=== PATIENT | female | born 1995 | race Caucasian/White ===

== ENCOUNTER 2020-06-02 15:25 | Emergency (ER) | payer SELFPAY ==
[2020-06-02 16:11] VITALS: BP 124/83; PULSE 112; RESP 16; TEMP 36.5; O2SAT 100; BMI 36.8
[2020-06-02 17:26] VITALS: RESP 18
[2020-06-02 17:45] LABS: Basophils # 0.1 10^3/uL (0.0-0.1); Basophils % 0.6 %; Eosinophils # 0.5 10^3/uL (0.0-0.8); Eosinophils % 3.3 %; Hematocrit 40.7 % (37.0-47.0); Hemoglobin 13.2 g/dL (11.5-15.3); Lymphocytes % 28.8 %; Mean Corpuscular HGB Conc 32.4 g/dL (30.0-36.0); Mean Corpuscular Hemoglobin 28.2 pg (28.0-34.0); Mean Platelet Volume 8.6 fL (7.4-10.4); Monocytes # 1.1 10^3/uL (0.2-0.9); Monocytes % 7.7 %; Neutrophils # 8.13 10^3/uL (1.8-7.7); Neutrophils % 59.1 %; Nucleated Red Blood Cells % 0 %; Platelet Count 436 10^3/cmm (130-400); Red Blood Count 4.68 10^6/uL (4.1-5.3); Red Cell Distribution Width 12.5 % (12.1-15.1); White Blood Count 13.8 10^3/uL (4.0-10.0)
[2020-06-02 18:03] LABS: INR 0.87 (0.8-1.2)
[2020-06-02 18:05] LABS: HCG, Serum Qual Negative (Negative)
[2020-06-02 18:07] LABS: Anion Gap 15.3 (5-19); Blood Urea Nitrogen 11 mg/dL (6-20); Calcium 9.7 mg/dL (8.5-10.5); Carbon Dioxide 27 mmol/L (22-29); Chloride 103 mmol/L (98-107); Glomerular Filtration Rate 122.8 mL/min (90-130); Glucose 107 mg/dL (65-115); Osmolality Calculated 292 mOsm/kg (285-295); Potassium 4.3 mmol/L (3.5-5.1); Sodium 141 mmol/L (136-145)
--- NOTE | 2020-06-02 18:17 | W.ED.FEMALGU ---
HPI - Female Genitourinary General: Chief complaint: Vaginal Bleeding Stated complaint: abd pain, back pain, vag bleeding Time Seen by Provider: 06/02/20 17:58 History of Present Illness: HPI Narrative: Patient has been on infertility medications over the last year. Stopped her last dose back in March. Has not had a period since November. Now complaining that she has had abdominal pain and some cramping over the last week which she has a history of dysmenorrhea and now she is passed some blood clots last 3 days spoke with is her office states that if she can get in there to come to the ER. MD elicited complaint: vaginal bleeding Pertinent past history: other Onset (ago): week(s) Quality of pain: cramping Consistency: intermittent Vaginal discharge: none Vaginal bleeding: clots Associated symptoms: Deny abdominal pain, headache(s), nausea or vaginal discharge Date of Last Menstrual Period: 12/11/19 Review of Systems Const: Denies: fever(s), chills or body aches Eyes: Denies: change in vision or blurry vision ENMT: Denies: throat pain or nasal congestion Card: Denies: chest pain or dyspnea on exertion Resp: Denies: dyspnea, productive cough or non-productive cough GI: Denies: abdominal pain, nausea or vomiting : Reports: dysmenorrhea and irregular period; Denies: vaginal discharge Musc: Denies: extremity pain Skin/Breast: Denies: rash Neuro: Denies: headache(s) Psych: Denies: anxiety or depression Liam/Lymph: Denies: easy bruising PFSH ED PFSH: Social History (Updated 06/02/20 @ 16:16 by Daryl Kan RN) Smoking and tobacco status: never smoked Alcohol intake: never Substance/Drug Use: never Female Reproductive History: Date of last menstrual period: 12/11/19 Physical Exam Const: COMMON NORMALS: no acute distress Resp: COMMON NORMALS: normal respiratory effort Psych: COMMON NORMALS: mental status grossly normal Course Vital Signs: Vital signs: Vital Signs Temperature 97.7 F 06/02/20 16:11 Pulse Rate 112 H 06/02/20 16:11 Respiratory Rate 16 06/02/20 16:11 Blood Pressure 124/83 06/02/20 16:11 Pulse Oximetry 100 06/02/20 16:11 MDM - Female MDM Narrative: Medical decision making narrative: Discussed at length about endometrium, vaginal bleeding, medications, and need to follow-up Dr. Ibarra went over the labs discussed all labs were normal reassured patient patient will contact Dr. Rodriguez's office for appointment Lab Data: Labs: Lab Results 06/02/20 06/02/20 06/02/20 Range/Units 17:36 17:36 17:36 WBC 13.8 H (4.0-10.0) 10^3/ uL RBC 4.68 (4.1-5.3) 10^6/u L Hgb 13.2 (11.5-15.3) g/dL Hct 40.7 (37.0-47.0) % MCV 87.0 (81-99) fL MCH 28.2 (28.0-34.0) pg MCHC 32.4 (30.0-36.0) g/dL RDW 12.5 (12.1-15.1) % Plt Count 436 H (130-400) 10^3/c mm MPV 8.6 (7.4-10.4) fL Neut % (Auto) 59.1 % Lymph % (Auto) 28.8 % [place] % (Auto) 7.7 % Eos % (Auto) 3.3 % Baso % (Auto) 0.6 % Neut # (Auto) 8.13 H (1.8-7.7) 10^3/u L Lymph # (Auto) 4.0 (0.8-4.8) 10^3/u L [place] # (Auto) 1.1 H (0.2-0.9) 10^3/u L Eos # (Auto) 0.5 (0.0-0.8) 10^3/u L Baso # (Auto) 0.1 (0.0-0.1) 10^3/u L Nucleated RBC % (a uto) 0 % Nucleated RBCs # 0.0 /100WBC PT 12.10 (12.1-14.9) SECO NDS INR 0.87 (0.8-1.2) Sodium 141 (136-145) mmol/L Potassium 4.3 (3.5-5.1) mmol/L Chloride 103 (98-107) mmol/L Carbon Dioxide 27 (22-29) mmol/L Anion Gap 15.3 (5-19) BUN 11 (6-20) mg/dL Creatinine 0.6 (0.5-0.9) mg/dL GFR Calculation 122.8 (90-130) mL/min Glucose 107 (65-115) mg/dL Calculated Osmolal ity 292 (285-295) mOsm/k g Calcium 9.7 (8.5-10.5) mg/dL HCG, Qual (Negative) 06/02/20 Range/Units 17:36 WBC (4.0-10.0) 10^3/ uL RBC (4.1-5.3) 10^6/u L Hgb (11.5-15.3) g/dL Hct (37.0-47.0) % MCV (81-99) fL MCH (28.0-34.0) pg MCHC (30.0-36.0) g/dL RDW (12.1-15.1) % Plt Count (130-400) 10^3/c mm MPV (7.4-10.4) fL Neut % (Auto) % Lymph % (Auto) % [place] % (Auto) % Eos % (Auto) % Baso % (Auto) % Neut # (Auto) (1.8-7.7) 10^3/u L Lymph # (Auto) (0.8-4.8) 10^3/u L [place] # (Auto) (0.2-0.9) 10^3/u L Eos # (Auto) (0.0-0.8) 10^3/u L Baso # (Auto) (0.0-0.1) 10^3/u L Nucleated RBC % (a uto) % Nucleated RBCs # /100WBC PT (12.1-14.9) SECO NDS INR (0.8-1.2) Sodium (136-145) mmol/L Potassium (3.5-5.1) mmol/L Chloride (98-107) mmol/L Carbon Dioxide (22-29) mmol/L Anion Gap (5-19) BUN (6-20) mg/dL Creatinine (0.5-0.9) mg/dL GFR Calculation (90-130) mL/min Glucose (65-115) mg/dL Calculated Osmolal ity (285-295) mOsm/k g Calcium (8.5-10.5) mg/dL HCG, Qual Negative (Negative) Discharge Plan Discharge Patient Disposition: Home Clinical Impression: Dysfunctional uterine bleeding Condition: Stable Prescriptions: No Action tramadol 50 mg tablet 50 mg PO BID PRNRF: 0 sertraline [Zoloft] 50 mg tablet 50 mg PO DAILY 30 Days Qty: 30 RF: 1 alprazolam 0.5 mg tablet 0.5 mg PO DAILY 30 Days Qty: 30 RF: 5 Discharge Orders: Discharge Order (Routine); Ordered 06/02/20 Ordered By: Pedro Gama Referrals: Graciela Pearl MD [Primary Care Provider] - Discharge Diet: Usual diet Discharge Activity: Increase activity as tolerated Patient Instructions: Dysfunctional Uterine Bleeding (ED) Activity Restrictions/Additional Instructions: Follow-up with Dr. bIarra and discuss the bleeding. Labs are normal here test was negative. And discussed proper medication regimen to help control this bleeding Coding Level of Care Code ED Inspector Final Assembly Conveyor Line for Chg Fwd Exam Expanded Problem Focused
== END 2020-06-02 18:28 | disposition home or self-care (01) ==
PROVIDERS: Emergency Provider Nurse Practitioner Family; PCP Family Medicine
DX: N93.8 Other specified abnormal uterine and vaginal bleeding (principal)
CPT/HCPCS: 12345; 36415; 80048; 84703; 85025; 85610; 99281; 99282

== ENCOUNTER → 2020-06-19 15:38 | Outpatient (BNVA) | payer SELFPAY | PROVIDERS: PCP Family Medicine; Visit Provider Obstetrics & Gynecology | DX: R10.2 Pelvic and perineal pain (principal) | CPT/HCPCS: 76830 ==

== ENCOUNTER → 2021-08-09 14:36 | Outpatient (BNVA) | payer BC, SELFPAY | PROVIDERS: PCP Family Medicine; Visit Provider Family Medicine | DX: N93.8 Other specified abnormal uterine and vaginal bleeding (principal) | CPT/HCPCS: 85018 ==

== ENCOUNTER → 2022-04-21 11:51 | Outpatient (BNVA) | payer BC, SELFPAY | PROVIDERS: PCP Family Medicine; Visit Provider Nurse Practitioner | DX: E28.2 Polycystic ovarian syndrome (principal); N93.8 Other specified abnormal uterine and vaginal bleeding | CPT/HCPCS: 84439; 84443; 84481 ==

== ENCOUNTER 2022-06-07 07:28 | Outpatient (CLI) | payer BC, SELFPAY ==
[2022-06-07 11:21] LABS: Progesterone > 60 ng/mL
== END 2022-06-07 07:29 | disposition home or self-care (01) ==
PROVIDERS: PCP Family Medicine; Visit Provider Specialist
DX: Z01.89 Encounter for other specified special examinations (principal)
CPT/HCPCS: 36415; 84144; 84702

== ENCOUNTER 2022-06-09 07:32 | Outpatient (CLI) | payer BC, SELFPAY ==
[2022-06-09 08:43] LABS: Progesterone > 60 ng/mL
== END 2022-06-09 07:33 | disposition home or self-care (01) ==
LOC: LAB 07:34
PROVIDERS: PCP Family Medicine; Visit Provider Specialist
DX: Z01.89 Encounter for other specified special examinations (principal)
CPT/HCPCS: 84144; 84702

== ENCOUNTER 2022-07-11 16:37 | Emergency (ER) | payer BC, SELFPAY ==
[2022-07-11 16:50] VITALS: BP 129/75; PULSE 100; RESP 16; TEMP 36.7; O2SAT 99; BMI 41.0
--- NOTE | 2022-07-11 19:30 | ED_ITS ---
HPI - Nausea/Vomiting/Diarrhea General: Chief complaint: Nausea/Vomiting/Diarrhea Stated complaint: n/v Time Seen by Provider: 07/11/22 19:30 History of Present Illness: 26-year-old female comes in today for treatment of persistent nausea and vomiting. Patient reports inability to hold food and fluids down over the last 2 days. Patient is 10 weeks . Patient denies any other medical issues or concerns. Associated nausea: Yes Associated symtoms: Reports nausea Review of Systems Const: Denies: fever(s) GI: Reports: nausea and vomiting [facility] PFSH: Medical History Depression Dysfunctional uterine bleeding GERD without esophagitis Irritable bowel Migraine with aura, not intractable, without status migrainosus Polycystic ovarian syndrome Irregular cycles since menarche, longest up to 1 year without cycle, with increased acne problems. Diagnosed with PCOS in 2015. Surgical History S/P laparoscopic cholecystectomy (~2018) [facility]. Family History Grandmother Hypertension Maternal Hyperlipidemia Maternal Mother Hyperlipidemia Social History Smoking and tobacco status: never smoked Second hand smoke exposure: No Smoking risk assessment/counseling performed?: No Alcohol intake: unknown Desire information about alcohol rehabilitation?: No Counseling given: No Desire information about substance/drug rehabilitation?: No Counseling given: No Adopted: No Caregiver/support person: No Lives independently: Yes Household members: spouse Housing: House Marital status: Number of children: 0 service: No Current occupational status: employed Pets and animals: Yes Pets & animals: dog(s) History of recent travel: No Current gender identity: Female Female Reproductive History: Date of last menstrual period: 04/14/22 Physical Exam 2 Const: COMMON NORMALS: alert HENMT: COMMON NORMALS: normocephalic HEAD & SCALP: normocephalic Neck/C-Spine: GENERAL: No tender Resp: COMMON NORMALS: normal respiratory effort and clear to auscultation bilaterally AUSCULTATION: clear to auscultation bilaterally Cardio: COMMON NORMALS: regular rate and regular rhythm RATE: regular rate RHYTHM: regular rhythm GI: COMMON NORMALS: non-tender : COMMON NORMALS: Yes no CVA tenderness BLADDER/KIDNEY EXAM: Yes no CVA tenderness Back/Pelvis: COMMON NORMALS: no CVA tenderness Neuro: SENSORIUM/ORIENTATION: Yes alert Skin: COMMON NORMALS: turgor normal GENERAL SKIN EXAM: turgor normal Course Vital Signs: Vital signs: Vital Signs Temperature 98.1 F 07/11/22 16:50 Pulse Rate 100 07/11/22 16:50 Respiratory Rate 16 07/11/22 16:50 Blood Pressure 129/75 07/11/22 16:50 Pulse Oximetry 99 07/11/22 16:50 Oxygen Delivery Me thod 07/11/22 16:50 MDM - Nausea/Vomiting/Diarrhea Medical Decision Making Patient is 10 weeks comes in due to persistent nausea and vomiting. On exam abdomen is soft, no CVA tenderness, bowel sounds are present. Patient denied any abnormal vaginal discharge or drainage. Differential diagnosis includes dehydration, hyperemesis gravidarum, UTI. Urinalysis was unremarkable. CBC noted a mild leukocytosis at 13,000 and platelets at 497. CMP had a sodium of 132, potassium 3.5, anion gap 17.5. Patient was hydrated with 1 L of IV fluids and was able to tolerate p.o. challenge. Patient was given 10 mg of Reglan IV. Recommend patient follow-up with ARCHITECTURE INTERN in the morning for further recommendations and prescriptions for nausea and vomiting. Encourage electrolyte solution and water to maintain hydration. Patient reported understanding and agreed to plan. Lab Data 07/11/22 20:11 07/11/22 20:11 Laboratory Results WBC 13.7 10^3/uL (4.0-10.0) H 07/11/22 20:11 RBC 4.34 10^6/uL (4.1-5.3) 07/11/22 20:11 Hgb 12.4 g/dL (11.5-15.3) 07/11/22 20:11 Hct 37.4 % (37.0-47.0) 07/11/22 20:11 MCV 86.2 fl (81-99) 07/11/22 20:11 MCH 28.6 pg (28.0-34.0) 07/11/22 20:11 MCHC 33.2 g/dL (30.0-36.0) 07/11/22 20:11 RDW 12.9 % (12.1-15.1) 07/11/22 20:11 Plt Count 497 10^3/cmm (130-400) H 07/11/22 20:11 MPV 8.4 fL (7.4-10.4) 07/11/22 20:11 Neut % (Auto) 59.5 % 07/11/22 20:11 Lymph % (Auto) 31.7 % 07/11/22 20:11 [place] % (Auto) 6.8 % 07/11/22 20:11 Eos % (Auto) 1.0 % 07/11/22 20:11 Baso % (Auto) 0.6 % 07/11/22 20:11 Neut # (Auto) 8.13 10^3/uL (1.8-7.7) H 07/11/22 20:11 Lymph # (Auto) 4.3 10^3/uL (0.8-4.8) 07/11/22 20:11 [place] # (Auto) 0.9 10^3/uL (0.2-0.9) 07/11/22 20:11 Eos # (Auto) 0.1 10^3/uL (0.0-0.8) 07/11/22 20:11 Baso # (Auto) 0.1 10^3/uL (0.0-0.1) 07/11/22 20:11 Nucleated RBC % (auto) 0 % 07/11/22 20:11 Nucleated RBCs # 0.0 /100WBC 07/11/22 20:11 Sodium 132 mmol/L (136-145) L 07/11/22 20:11 Potassium 3.5 mmol/L (3.5-5.1) 07/11/22 20:11 Chloride 97 mmol/L (98-107) L 07/11/22 20:11 Carbon Dioxide 21 mmol/L (22-29) L 07/11/22 20:11 Anion Gap 17.5 (5-19) 07/11/22 20:11 BUN 5 mg/dL (6-20) L 07/11/22 20:11 Creatinine 0.5 mg/dL (0.5-0.9) 07/11/22 20:11 GFR Calculation 149.1 mL/min (90-130) H 07/11/22 20:11 Glucose 92 mg/dL (65-115) 07/11/22 20:11 Calculated Osmolality 271 mOsm/kg (285-295) L 07/11/22 20:11 Calcium 9.4 mg/dL (8.5-10.5) 07/11/22 20:11 Total Bilirubin 0.3 mg/dL (0.15-1.2) 07/11/22 20:11 AST 16 U/L (0-32) 07/11/22 20:11 ALT 14 U/L (0-33) 07/11/22 20:11 Alkaline Phosphatase 86 U/L (35-105) 07/11/22 20:11 Total Protein 7.6 g/dL (6.6-8.7) 07/11/22 20:11 Albumin 4.2 g/dL (3.5-5.2) 07/11/22 20:11 Globulin 3.4 g/dL (1.3-4.6) 07/11/22 20:11 Lipase 13 U/L (13-60) 07/11/22 20:11 HCG, Qual Positive (Negative) H 07/11/22 19:30 Urine Color Yellow (Yellow) 07/11/22 19:30 Urine Appearance Clear (CLEAR) 07/11/22 19:30 Urine pH 6 (5-7) 07/11/22 19:30 Ur Specific [place] 1.025 (1.005-1.030) 07/11/22 19:30 Urine Protein 1+ (Negative) H 07/11/22 19:30 Urine Glucose (UA) Norm (Normal) 07/11/22 19:30 Urine Ketones 3+ (Negative) H 07/11/22 19:30 Urine Blood 2+ (Negative) H 07/11/22 19:30 Urine Nitrate Negative (Negative) 07/11/22 19: Urine Bilirubin Neg (Negative) 07/11/22 19: Urine Urobilinogen Norm mg/dL (Negative) 07/11/22 19:30 Ur Leukocyte Esterase Negative (Negative) 07/11/22 19:30 Urine RBC 0-4 /hpf (0-2) H 07/11/22 19:30 Urine WBC 0-4 /hpf (0-5) H 07/11/22 19:30 Ur Squamous Epith Cells 0-4 /hpf (0-5) H 07/11/22 19:30 Amorphous Sediment Not Reportable 07/11/22 19:30 Urine Bacteria 4+ /hpf (NONE) H 07/11/22 19:30 Discharge Plan Discharge Patient Disposition: Home Clinical Impression: Dehydration, Hyperemesis arising during Condition: Stable Prescriptions: No Action norethindrone acetate 5 mg tablet 5 mg PO DAILY cholecalciferol (vitamin D3) 50 mcg (2,000 unit) capsule 50 mcg PO DAILY folic acid 800 mcg tablet 0.8 mg PO DAILY mecobalamin (vitamin B12) 5,000 mcg lozenge 5,000 mcg PO DAILY Rx Instructions: allow to dissolve in mouth OR may chew lightly before swallowing omega-3 fatty acids 1,250 mg capsule 1,250 mg PO DAILY metformin 500 mg tablet 500 mg PO BID Qty: 180 1RF Rx Instructions: begin w one tablet daily coenzyme Q10 100 mg capsule 200 mg PO DAILY Qty: 100 2RF Nylia 1/35 (28) 1-35 mg-mcg tablet 1 tab PO DAILY Follistim AQ 300 unit/0.36 mL cartridge 150 unit SUBCUT DAILY 14 Days Qty: 2.52 0RF chorionic gonadotropin, human [Pregnyl] 10,000 unit recon soln 10,000 unit IM ONCE 1 Days Qty: 1 0RF Ovidrel 250 mcg/0.5 mL syringe 250 mcg SUBCUT ONCE 1 Days Qty: 0.5 0RF ganirelix 250 mcg/0.5 mL syringe 250 mcg SUBCUT DAILY 7 Days Qty: 4 0RF Menopur 75 unit recon soln 150 unit SUBCUT DAILY 14 Days Qty: 6 0RF Rx Instructions: 6 box of 5 vials in each box progesterone 50 mg/mL oil 50 mg IM DAILY 30 Days Qty: 30 3RF famotidine [Acid Controller] 20 mg tablet 20 mg PO BID Qty: 120 1RF azithromycin 250 mg tablet 250 mg PO DAILY 30 Days Qty: 30 0RF prednisone 10 mg tablet 10 mg PO DAILY 30 Days Qty: 30 0RF Discharge Orders: Discharge ED (Routine); Ordered 07/11/22 Ordered By: Ras Day Referrals: Graciela Pearl MD [Primary Care Provider] - Discharge Diet: Advance as tolerated Discharge Activity: Increase activity as tolerated Patient Instructions: Hyperemesis Gravidarum (ED) Activity Restrictions/Additional Instructions: Drink frequent sips of fluid to avoid dehydration. A teaspoon of fluid such as water or Pedialyte every 5 minutes can help maintain hydration. Follow-up with ARCHITECTURE INTERN in the morning for further recommendations for nausea and vomiting. Return to ER for new concerns or worsening symptoms such as high fever greater than 100.4, increased shortness of breath, lightheaded or dizziness, or blood in vomit or stool. Coding Level of Care Code ED Maintenance Mechanic Elevators for Chg Fwd Exam Comprehensive
[2022-07-11 19:53] LABS: HCG Qualitative Urine. Positive (Negative)
[2022-07-11 20:15] LABS: Glucose Urine UA Norm (Normal); Ketones Urine 3+ (Negative); Protein Urine 1+ (Negative); Specific Gravity, Urine 1.025 (1.005-1.030); Urine Appearance Clear (CLEAR); Urine Color Yellow (Yellow); pH Urine 6 (5-7)
[2022-07-11 20:16] LABS: Add Urine Culture? Yes; Add Urine Microscopic? YES; Bacteria Urine 4+ /hpf; Bilirubin Urine Neg (Negative); Blood Urine 2+ (Negative); Leukocyte Esterase Urine Negative (Negative); Nitrate Urine Negative (Negative); RBC Urine 0-4 /hpf (0-2); Squamous Epithelial Cell Urine 0-4 /hpf (0-5); Urobilinogen Urine Norm (Negative); WBC Urine 0-4 /hpf (0-5)
[2022-07-11] MEDS: metoclopramide 5 mg/mL SDV 2 mL 10 MG IVP (20:21)
[2022-07-11] MEDS: sodium chloride 0.9% 1,000 ML 999 ML IV (20:22)
[2022-07-11 20:51] LABS: Basophils # 0.1 10^3/uL (0.0-0.1); Basophils % 0.6 %; Eosinophils # 0.1 10^3/uL (0.0-0.8); Hematocrit 37.4 % (37.0-47.0); Hemoglobin 12.4 g/dL (11.5-15.3); Lymphocytes # 4.3 10^3/uL (0.8-4.8); Lymphocytes % 31.7 %; Mean Corpuscular HGB Conc 33.2 g/dL (30.0-36.0); Mean Corpuscular Hemoglobin 28.6 pg (28.0-34.0); Mean Corpuscular Volume 86.2 fl (81-99); Mean Platelet Volume 8.4 fL (7.4-10.4); Monocytes # 0.9 10^3/uL (0.2-0.9); Monocytes % 6.8 %; Neutrophils # 8.13 10^3/uL (1.8-7.7); Neutrophils % 59.5 %; Nucleated Red Blood Cells % 0 %; Platelet Count 497 10^3/cmm (130-400); Red Blood Count 4.34 10^6/uL (4.1-5.3); Red Cell Distribution Width 12.9 % (12.1-15.1); White Blood Count 13.7 10^3/uL (4.0-10.0)
[2022-07-11 21:30] LABS: Alanine Aminotransferase 14 U/L (0-33); Albumin Level 4.2 g/dL (3.5-5.2); Alkaline Phosphatase 86 U/L (35-105); Anion Gap 17.5 (5-19); Aspartate Amino Transferase 16 U/L (0-32); Blood Urea Nitrogen 5 mg/dL (6-20); Calcium 9.4 mg/dL (8.5-10.5); Carbon Dioxide 21 mmol/L (22-29); Chloride 97 mmol/L (98-107); Globulin 3.4 g/dL (1.3-4.6); Glomerular Filtration Rate 149.1 mL/min (90-130); Glucose 92 mg/dL (65-115); Lipase 13 U/L (13-60); Osmolality Calculated 271 mOsm/kg (285-295); Potassium 3.5 mmol/L (3.5-5.1); Sodium 132 mmol/L (136-145); Total Bilirubin 0.3 mg/dL (0.15-1.2); Total Protein 7.6 g/dL (6.6-8.7)
== END 2022-07-11 22:11 | disposition home or self-care (01) ==
PROVIDERS: Emergency Medicine; Emergency Provider Nurse Practitioner Family; PCP Family Medicine
DX: O21.1 Hyperemesis gravidarum with metabolic disturbance (principal); Z3A.10 10 weeks gestation of pregnancy
CPT/HCPCS: 80053; 81001; 81025; 83690; 85025; 87086; 96361; 96374; 99284; J2765; J7030

== ENCOUNTER → 2022-07-15 07:16 | Outpatient (BNVA) | payer BC, SELFPAY | PROVIDERS: PCP Family Medicine; Visit Provider Family Medicine | DX: Z34.90 Encounter for supervision of normal pregnancy, unspecified, unspecified trimester (principal) | CPT/HCPCS: 80307; 81000; 81025; 83036; 84443; 85025; 86762; 86803; 86850; 86900; 87086; 87340; 87806 ==

== ENCOUNTER 2022-07-19 10:38 | Emergency (ER) | payer BC, SELFPAY ==
[2022-07-19 10:53] VITALS: BP 115/78; PULSE 99; RESP 18; TEMP 36.7; O2SAT 98
--- NOTE | 2022-07-19 11:15 | PC.NURSE ---
pt reports slight brown vaginal discharge on 07/16-07/17, reports today it is more of a yellow vaginal discharge. Came to ER for vomiting since 07/17 and diarrhea that started today. Denies fevers or complaints. Mild abdominal cramping. Reports is currently 11 weeks , first . Pt skin pink/warm/dry. Lung sounds clear bilat. Bowel sounds present x4.
[2022-07-19 11:24] LABS: Basophils # 0.1 10^3/uL (0.0-0.1); Basophils % 0.5 %; Eosinophils # 0.1 10^3/uL (0.0-0.8); Hemoglobin 12.9 g/dL (11.5-15.3); Lymphocytes # 2.5 10^3/uL (0.8-4.8); Lymphocytes % 19.3 %; Mean Corpuscular HGB Conc 33.1 g/dL (30.0-36.0); Mean Corpuscular Hemoglobin 28.4 pg (28.0-34.0); Mean Corpuscular Volume 85.9 fl (81-99); Mean Platelet Volume 8.5 fL (7.4-10.4); Monocytes # 0.9 10^3/uL (0.2-0.9); Neutrophils # 9.41 10^3/uL (1.8-7.7); Neutrophils % 71.7 %; Nucleated Red Blood Cells % 0 %; Platelet Count 460 10^3/cmm (130-400); Red Blood Count 4.54 10^6/uL (4.1-5.3); White Blood Count 13.1 10^3/uL (4.0-10.0)
[2022-07-19] MEDS: sodium chloride 0.9% 1,000 ML 999 ML IV ×2 (11:31→12:33)
[2022-07-19] MEDS: promethazine 25 mg/mL SDV 1 mL IM (11:33)
[2022-07-19 11:44] LABS: Alanine Aminotransferase 12 U/L (0-33); Albumin Level 4.5 g/dL (3.5-5.2); Alkaline Phosphatase 85 U/L (35-105); Anion Gap 15.7 (5-19); Aspartate Amino Transferase 16 U/L (0-32); Blood Urea Nitrogen 6 mg/dL (6-20); Calcium 9.7 mg/dL (8.5-10.5); Carbon Dioxide 24 mmol/L (22-29); Chloride 98 mmol/L (98-107); Globulin 3.4 g/dL (1.3-4.6); Glomerular Filtration Rate 149.1 mL/min (90-130); Glucose 95 mg/dL (65-115); Osmolality Calculated 275 mOsm/kg (285-295); Potassium 3.7 mmol/L (3.5-5.1); Sodium 134 mmol/L (136-145); Total Bilirubin 0.4 mg/dL (0.15-1.2); Total Protein 7.9 g/dL (6.6-8.7)
[2022-07-19 12:07] VITALS: BP 93/67; PULSE 96; RESP 28; O2SAT 100
--- NOTE | 2022-07-19 12:13 | W.ED.NAVMDI ---
HPI - Nausea/Vomiting/Diarrhea General: Chief complaint: Nausea/Vomiting/Diarrhea Stated complaint: Fluids are coming out & 11 weeks preg Time Seen by Provider: 07/19/22 11:03 Source: patient Mode of arrival: ambulatory History of Present Illness: 26-year-old female presents emergency room complaining of nausea vomiting she is approximately 11 weeks has had recurrent nausea and vomiting is tried various medications at home including Zofran paroxetine and Unisom with no improvement. MD elicited complaint: nausea and vomiting Onset (ago): day(s) Description of vomiting: food contents and watery Associated nausea: Yes Pain consistency: intermittent Severity: moderate Quality: cramping Exacerbating factors: none Associated symtoms: Reports anorexia, malaise and nausea; Denies altered mental status, anxiety, bloating, change in vision, chest pain, cough, diaphoresis, decreased urine output, dizziness, dysuria, epistaxis, fatigue, fecal incontinence, fevers/chills, headache(s), myalgias, numbness, palpitations, rash, short of breath, syncope, tenesmus, tinnitus or weakness Treatment prior to arrival: other OTC medicine Review of Systems Const: Reports: malaise; Denies: fever(s), chills, fatigue or diaphoresis Eyes: Denies: change in vision ENMT: Denies: tinnitus or epistaxis Card: Denies: chest pain, palpitations or syncope Resp: Denies: dyspnea, productive cough or non-productive cough GI: Reports: abdominal pain and nausea; Denies: vomiting, bloating or fecal incontinence : Denies: flank pain, difficulty voiding, dysuria, urinary frequency or urinary urgency Musc: Denies: neck pain or back pain Skin/Breast: Denies: rash or pruritus Neuro: Denies: headache(s) or dizziness Psych: Denies: anxiety PFSH ED PFSH: Medical History Depression Dysfunctional uterine bleeding GERD without esophagitis Irritable bowel Migraine with aura, not intractable, without status migrainosus Polycystic ovarian syndrome Irregular cycles since menarche, longest up to 1 year without cycle, with increased acne problems. Diagnosed with PCOS in 2015. Surgical History S/P laparoscopic cholecystectomy (~2019) [facility]. Family History Grandmother Hypertension Maternal Hyperlipidemia Maternal Mother Hyperlipidemia Social History Smoking and tobacco status: never smoked Second hand smoke exposure: No Smoking risk assessment/counseling performed?: No Alcohol intake: unknown Desire information about alcohol rehabilitation?: No Counseling given: No Desire information about substance/drug rehabilitation?: No Counseling given: No Adopted: No Caregiver/support person: No Lives independently: Yes Household members: spouse Housing: House Marital status: Number of children: 0 service: No Current occupational status: employed Pets and animals: Yes Pets & animals: dog(s) History of recent travel: No Current gender identity: Female Female Reproductive History: Date of last menstrual period: 05/05/22 Physical Exam Const: EXAM LIMITATIONS: no altered mental status GENERAL APPEARANCE: cooperative and comfortable ORIENTATION/CONSCIOUSNESS: Yes awake, Yes oriented to person, Yes oriented to place and Yes oriented to time HENMT: COMMON NORMALS: normocephalic, atraumatic, hearing grossly normal bilaterally and external ears normal HEAD & SCALP: normocephalic and atraumatic EXTERNAL EAR: Yes external ears normal Eye: COMMON NORMALS: Equal, round and reactive pupils present, EOMs intact bilaterally, conjunctivae normal and no scleral icterus CONJUNCTIVA: Yes conjunctivae normal PUPIL: Yes Equal, round and reactive pupils present Neck/C-Spine: COMMON NORMALS: full ROM, no lymphadenopathy, supple and no JVD Lymph: LYMPHATIC: no lymphadenopathy noted and no lymphedema noted Resp: COMMON NORMALS: normal respiratory effort, No retractions, No use of accessory muscles and clear to auscultation bilaterally AUSCULTATION: clear to auscultation bilaterally Cardio: COMMON NORMALS: no JVD, regular rate, regular rhythm and No murmurs present (Cardio) RATE: regular rate RHYTHM: regular rhythm GI: COMMON NORMALS: Soft to palpation and No hepatosplenomegaly present AUSCULTATION: Yes normoactive bowel sounds PALPATION: Yes Soft to palpation, No Tenderness to palpation present (GI), No Guarding due to palpation present (GI) and Yes No hepatosplenomegaly present Extremity: COMMON NORMALS: normal to inspection, capillary refill normal, no clubbing, cyanosis or edema, no calf tenderness and no pedal edema Neuro: SENSORIUM/ORIENTATION: Yes oriented to person, Yes oriented to place and Yes oriented to time Skin: COMMON NORMALS: no rashes or lesions noted GENERAL SKIN EXAM: no rashes or lesions noted Course Vital Signs: Vital signs: Vital Signs Temperature 98.1 F 07/19/22 10:53 Pulse Rate 97 07/19/22 12:45 Respiratory Rate 22 H 07/19/22 12:45 Blood Pressure 93/67 07/19/22 12:30 Pulse Oximetry 100 07/19/22 12:45 MDM - Nausea/Vomiting/Diarrhea Medical Decision Making Improved with fluids and antiemetics. We will discharge patient home and start on Diclegis just follow-up with his primary care. Medical Records I reviewed the patient's medical records. Lab Data I reviewed the patient's lab results. 07/19/22 11:19 07/19/22 11:19 Laboratory Results WBC 13.1 10^3/uL (4.0-10.0) H 07/19/22 11:19 RBC 4.54 10^6/uL (4.1-5.3) 07/19/22 11:19 Hgb 12.9 g/dL (11.5-15.3) 07/19/22 11:19 Hct 39.0 % (37.0-47.0) 07/19/22 11:19 MCV 85.9 fl (81-99) 07/19/22 11:19 MCH 28.4 pg (28.0-34.0) 07/19/22 11:19 MCHC 33.1 g/dL (30.0-36.0) 07/19/22 11:19 RDW 13.0 % (12.1-15.1) 07/19/22 11:19 Plt Count 460 10^3/cmm (130-400) H 07/19/22 11:19 MPV 8.5 fL (7.4-10.4) 07/19/22 11:19 Neut % (Auto) 71.7 % 07/19/22 11:19 Lymph % (Auto) 19.3 % 07/19/22 11:19 [place] % (Auto) 7.0 % 07/19/22 11:19 Eos % (Auto) 1.0 % 07/19/22 11:19 Baso % (Auto) 0.5 % 07/19/22 11:19 Neut # (Auto) 9.41 10^3/uL (1.8-7.7) H 07/19/22 11:19 Lymph # (Auto) 2.5 10^3/uL (0.8-4.8) 07/19/22 11:19 [place] # (Auto) 0.9 10^3/uL (0.2-0.9) 07/19/22 11:19 Eos # (Auto) 0.1 10^3/uL (0.0-0.8) 07/19/22 11:19 Baso # (Auto) 0.1 10^3/uL (0.0-0.1) 07/19/22 11:19 Nucleated RBC % (auto) 0 % 07/19/22 11:19 Nucleated RBCs # 0.0 /100WBC 07/19/22 11:19 Sodium 134 mmol/L (136-145) L 07/19/22 11:19 Potassium 3.7 mmol/L (3.5-5.1) 07/19/22 11:19 Chloride 98 mmol/L (98-107) 07/19/22 11:19 Carbon Dioxide 24 mmol/L (22-29) 07/19/22 11:19 Anion Gap 15.7 (5-19) 07/19/22 11:19 BUN 6 mg/dL (6-20) 07/19/22 11:19 Creatinine 0.5 mg/dL (0.5-0.9) 07/19/22 11:19 GFR Calculation 149.1 mL/min (90-130) H 07/19/22 11:19 Glucose 95 mg/dL (65-115) 07/19/22 11:19 Calculated Osmolality 275 mOsm/kg (285-295) L 07/19/22 11:19 Calcium 9.7 mg/dL (8.5-10.5) 07/19/22 11:19 Total Bilirubin 0.4 mg/dL (0.15-1.2) 07/19/22 11:19 AST 16 U/L (0-32) 07/19/22 11:19 ALT 12 U/L (0-33) 07/19/22 11:19 Alkaline Phosphatase 85 U/L (35-105) 07/19/22 11:19 Total Protein 7.9 g/dL (6.6-8.7) 07/19/22 11:19 Albumin 4.5 g/dL (3.5-5.2) 07/19/22 11: Globulin 3.4 g/dL (1.3-4.6) 07/19/22 11:19 Urine Color Yellow (Yellow) 07/19/22 12:35 Urine Appearance Hazy (CLEAR) A 07/19/22 12:35 Urine pH 6 (5-7) 07/19/22 12:35 Ur Specific [place] 1.020 (1.005-1.030) 07/19/22 12:35 Urine Protein Neg (Negative) 07/19/22 12:35 Urine Glucose (UA) Norm (Normal) 07/19/22 12:35 Urine Ketones 3+ (Negative) H 07/19/22 12:35 Urine Blood 3+ (Negative) H 07/19/22 12:35 Urine Nitrate Negative (Negative) 07/19/22 12:35 Urine Bilirubin 1+ (Negative) H 07/19/22 12:35 Urine Urobilinogen 1 mg/dL (Negative) H 07/19/22 12:35 Ur Leukocyte Esterase Negative (Negative) 07/19/22 12:35 Urine RBC 5-10 /hpf (0-2) H 07/19/22 12:35 Urine WBC 0-4 /hpf (0-5) H 07/19/22 12:35 Ur Squamous Epith Cells 0-4 /hpf (0-5) H 07/19/22 12:35 Amorphous Sediment Not Reportable 07/19/22 12:35 Urine Bacteria 2+ /hpf (NONE) H 07/19/22 12:35 Urine Mucus 2+ /hpf 07/19/22 12:35 Discharge Plan Discharge Patient Disposition: Home Clinical Impression: Hyperemesis gravidarum Condition: Stable Prescriptions: New Diclegis 10-10 mg tablet,delayed release (DR/EC) 1 tab PO BID Qty: 90 0RF Rx Instructions: Start taking 2 tablets at at bedtime. If that does not improve symptoms after 2 days take 2 Aygestin 1 tablet in the morning if that does not improve symptoms after 2 days go to 2 tablets twice daily. promethazine 25 mg tablet 25 mg PO Q6H PRN (Reason: nausea and vomiting) Qty: 20 0RF Continued Folplex 2.2 2.2-25-0.5 mg tablet 1 tab PO BEDTIME Discontinued doxylamine succinate 25 mg tablet See Rx Instructions .Route .COMPLEX PRN (Reason: nausea and vomiting) Qty: 60 6RF Rx Instructions: Take 1 tab by mouth each evening and 1/2 tab in the am as needed for nausea PRN; No Action cholecalciferol (vitamin D3) 50 mcg (2,000 unit) capsule 5,000 unit PO BEDTIME aspirin 81 mg capsule 81 mg PO BEDTIME pyridoxine (vitamin B6) 100 mg tablet 100 mg PO BID PRN (Reason: Nausea) Qty: 60 2RF (DME) blood-glucose meter [Accu-Chek [place] Plus Meter] Misc See Rx Instructions .Route Qty: 1 0RF Rx Instructions: As directed (DME) Accu-Chek [place] Plus test strp Strip See Rx Instructions .Route Qty: 100 3RF Rx Instructions: As directed TID (DME) lancets [Accu-Chek Softclix Lancets] Misc See Rx Instructions .Route Qty: 200 3RF Rx Instructions: As directed TID ondansetron HCl 4 mg tablet 4 mg PO Q8H PRN (Reason: nausea and vomiting) Qty: 30 0RF Multivitamins 28 mg iron- 800 mcg Tablet 1 tab PO BEDTIME Discharge Orders: Discharge ED (Routine); Ordered 07/19/22 Ordered By: Graham Doyle Referrals: Graciela Pearl MD [Primary Care Provider] - Coding Level of Care Code ED Linter Saw Sharpener for Chg Fwd Exam Comprehensive
[2022-07-19 12:15] VITALS: BP 93/67; PULSE 96; RESP 26; O2SAT 100
--- NOTE | 2022-07-19 12:25 | PC.PHAR ---
pt states she takes care of her own medications-pt states the dr santoyo the progesterone 50mg/ml oil last week-ext med history shows prednisone 10mg qam filled 06/02/22 30d/s pt states finished 2 weeks ago-
[2022-07-19 12:30] VITALS: BP 93/67
[2022-07-19 12:45] VITALS: PULSE 97; RESP 22; O2SAT 100
[2022-07-19 12:58] LABS: Add Urine Culture? Yes; Add Urine Microscopic? YES; Bacteria Urine 2+ /hpf; Bilirubin Urine 1+ (Negative); Blood Urine 3+ (Negative); Glucose Urine UA Norm (Normal); Ketones Urine 3+ (Negative); Leukocyte Esterase Urine Negative (Negative); Mucus Urine 2+ /hpf; Nitrate Urine Negative (Negative); Protein Urine Neg (Negative); Squamous Epithelial Cell Urine 0-4 /hpf (0-5); Urine Appearance Hazy (CLEAR); Urine Color Yellow (Yellow); Urobilinogen Urine 1 mg/dL (Negative); WBC Urine 0-4 /hpf (0-5); pH Urine 6 (5-7)
== END 2022-07-19 13:42 | disposition home or self-care (01) ==
PROVIDERS: Emergency Provider Family Medicine; PCP Family Medicine
DX: O21.0 Mild hyperemesis gravidarum (principal); Z3A.11 11 weeks gestation of pregnancy
CPT/HCPCS: 80053; 81001; 85025; 87086; 96360; 96372; 99284; J2550; J7030

== ENCOUNTER → 2022-07-25 15:28 | Outpatient (BNVA) | payer BC, SELFPAY | PROVIDERS: PCP Family Medicine; Visit Provider Family Medicine | DX: Z34.00 Encounter for supervision of normal first pregnancy, unspecified trimester (principal); O20.9 Hemorrhage in early pregnancy, unspecified; Z3A.00 Weeks of gestation of pregnancy not specified | CPT/HCPCS: 84144; 84702 ==

== ENCOUNTER → 2022-07-28 14:00 | Outpatient (BNVA) | payer BC, SELFPAY | PROVIDERS: PCP Family Medicine; Visit Provider Family Medicine | DX: Z34.00 Encounter for supervision of normal first pregnancy, unspecified trimester (principal); N93.8 Other specified abnormal uterine and vaginal bleeding | CPT/HCPCS: 84144; 84702 ==

== ENCOUNTER 2022-08-03 15:45 | Outpatient (CLI) | payer BC, SELFPAY ==
--- NOTE | 2022-08-03 | US_ITS ---
WS: [id number] TRANSABDOMINAL FIRST TRIMESTER ULTRASOUND REASON FOR EXAM: DATING US COMPARISON: None available. ORDER DATE: 08/03/2022 4:05 PM : 1 PARA: 0 COMPARISON: None available. FINDINGS: Cervix; closed. Single live intrauterine . [place] rump length measuring 7.2 cm. Gestational sac measures 13w2d cm. cardiac tones 133 BPM. Estimated date of delivery 02/06/2023. Anterior fundal placenta Right ovary measures 4.2 cm x 3.2 cm x 3.0 cm. Left ovary measures 3 cm x 2.9 cm x 3.5 cm. US/US OB <= 14 weeks fetus [id number] IMPRESSION: Unremarkable 13 week gestation.
== END 2022-08-03 15:46 | disposition home or self-care (01) ==
LOC: RAD 15:46
PROVIDERS: PCP Family Medicine; Visit Provider Family Medicine
DX: Z36.87 Encounter for antenatal screening for uncertain dates (principal); Z3A.13 13 weeks gestation of pregnancy
CPT/HCPCS: 76801

== ENCOUNTER 2022-09-02 18:17 | Emergency (ER) | payer BC, SELFPAY ==
[2022-09-02 18:33] VITALS: BP 114/82; PULSE 124; RESP 20; TEMP 36.6; O2SAT 100; BMI 40.3
[2022-09-02 19:41] LABS: Basophils # 0.1 10^3/uL (0.0-0.1); Basophils % 0.4 %; Eosinophils # 0.1 10^3/uL (0.0-0.8); Eosinophils % 0.4 %; Hematocrit 35.2 % (37.0-47.0); Hemoglobin 11.6 g/dL (11.5-15.3); Lymphocytes # 2.5 10^3/uL (0.8-4.8); Lymphocytes % 14.7 %; Mean Corpuscular Hemoglobin 28.3 pg (28.0-34.0); Mean Corpuscular Volume 85.9 fl (81-99); Mean Platelet Volume 8.5 fL (7.4-10.4); Monocytes # 0.9 10^3/uL (0.2-0.9); Monocytes % 5.5 %; Neutrophils # 13.26 10^3/uL (1.8-7.7); Neutrophils % 78.2 %; Nucleated Red Blood Cells % 0 %; Platelet Count 463 10^3/cmm (130-400); Red Cell Distribution Width 12.8 % (12.1-15.1)
[2022-09-02 20:03] LABS: Alanine Aminotransferase 9 U/L (0-33); Albumin Level 4.2 g/dL (3.5-5.2); Alkaline Phosphatase 90 U/L (35-105); Anion Gap 18.3 (5-19); Aspartate Amino Transferase 17 U/L (0-32); Blood Urea Nitrogen 4 mg/dL (6-20); Calcium 9.7 mg/dL (8.5-10.5); Carbon Dioxide 22 mmol/L (22-29); Chloride 99 mmol/L (98-107); Globulin 2.9 g/dL (1.3-4.6); Glomerular Filtration Rate 192.9 mL/min (90-130); Glucose 105 mg/dL (65-115); Lipase 18 U/L (13-60); Osmolality Calculated 277 mOsm/kg (285-295); Potassium 4.3 mmol/L (3.5-5.1); Sodium 135 mmol/L (136-145); Total Bilirubin 0.3 mg/dL (0.15-1.2); Total Protein 7.1 g/dL (6.6-8.7)
[2022-09-02 20:08] LABS: Troponin T (5th) Once 8 ng/L (0-10)
[2022-09-02 22:29] VITALS: BP 122/78; PULSE 120; RESP 14; O2SAT 97
[2022-09-02 23:12] VITALS: BP 109/76; PULSE 118; RESP 16; O2SAT 97
[2022-09-02] MEDS: ondansetron 2 mg/ML SDV 2 mL 4 MG IVP (23:24)
[2022-09-02] MEDS: sodium chloride 0.9% 1,000 ML 999 ML IV (23:24)
[2022-09-02] MEDS: metoclopramide 5 mg/mL SDV 2 mL 10 MG IVP (23:27)
[2022-09-03] MEDS: sodium chloride 0.9% 1,000 ML 999 ML IV ×2 (00:42→01:27)
[2022-09-03 01:03] LABS: Bilirubin Urine 1+ (Negative); Blood Urine 3+ (Negative); Glucose Urine UA Norm (Normal); Ketones Urine 3+ (Negative); Nitrate Urine Negative (Negative); Protein Urine 2+ (Negative); Urine Appearance Clear (CLEAR); Urine Color Yellow (Yellow); Urobilinogen Urine 1 mg/dL (Negative); pH Urine 5 (5-7)
[2022-09-03 01:04] LABS: Add Urine Microscopic? YES; Leukocyte Esterase Urine Negative (Negative)
[2022-09-03 01:05] VITALS: BP 92/60; PULSE 100; RESP 16; O2SAT 97
[2022-09-03 01:05] LABS: WBC Urine 0-4 /hpf (0-5)
[2022-09-03 01:06] LABS: Bacteria Urine 1+ /hpf; Mucus Urine TRACE /hpf; Squamous Epithelial Cell Urine 0-4 /hpf (0-5)
[2022-09-03 01:07] LABS: Add Urine Culture? No
[2022-09-03 01:58] VITALS: BP 117/74; PULSE 99; RESP 16; O2SAT 97
--- NOTE | 2022-09-03 06:20 | W.ED.NAVMDI ---
HPI - Nausea/Vomiting/Diarrhea General: Chief complaint: Nausea/Vomiting/Diarrhea Stated complaint: n/v, chest pain, 17 weeks Time Seen by Provider: 09/02/22 22:40 Source: patient History of Present Illness: Healthy 26 year old female who believes she is 17 weeks plus . She has experienced multiple episodes of vomiting over the past 24 to 36 hours. She had taken antiemetic medication at home without improvement. She has had this problem before with this , and had prior prescriptions for it. She denies any fever. No vaginal bleeding. No overt abdominal pain. She states she has mild chest discomfort, from throwing up. She is mildly concerned, as she has felt decrease in movement over the past 12 hours or so. MD elicited complaint: nausea, vomiting and other Pertinent past history: other Onset (ago): hour(s) Description of vomiting: food contents and watery Associated nausea: Yes Associated abdominal pain: No Radiation: other Pain consistency: other Quality: cramping (mild) Exacerbating factors: eating Relieving factors: none Associated symtoms: Reports chest pain (mild while vomiting), decreased urine output and nausea; Denies cough, dysuria, fevers/chills, headache(s), anorexia, palpitations or short of breath Treatment prior to arrival: other Review of Systems Const: Denies: fever(s) or chills ENMT: Denies: throat pain Card: Reports: chest pain (mild while vomiting); Denies: palpitations Resp: Denies: dyspnea, productive cough or non-productive cough GI: Reports: nausea and vomiting; Denies: abdominal pain : Denies: flank pain, difficulty voiding or dysuria Neuro: Denies: headache(s) PFS ED PFSH: Medical History Depression Dysfunctional uterine bleeding GERD without esophagitis Irritable bowel Migraine with aura, not intractable, without status migrainosus Polycystic ovarian syndrome Irregular cycles since menarche, longest up to 1 year without cycle, with increased acne problems. Diagnosed with PCOS in 2015. Surgical History S/P laparoscopic cholecystectomy (~2019) [facility]. Family History Grandmother Hypertension Maternal Hyperlipidemia Maternal Mother Hyperlipidemia Social History Smoking and tobacco status: never smoked Second hand smoke exposure: No Smoking risk assessment/counseling performed?: No Alcohol intake: unknown Desire information about alcohol rehabilitation?: No Counseling given: No Desire information about substance/drug rehabilitation?: No Counseling given: No Adopted: No Caregiver/support person: No Lives independently: Yes Household members: spouse Housing: House Marital status: Number of children: 0 service: No Current occupational status: employed Pets and animals: Yes Pets & animals: dog(s) History of recent travel: No Current gender identity: Female Female Reproductive History: Date of last menstrual period: 05/05/22 Physical Exam Const: COMMON NORMALS: no acute distress GENERAL APPEARANCE: cooperative and ill appearing (mildly); not frail appearing NUTRITIONAL APPEARANCE: obese HENMT: COMMON NORMALS: normocephalic, atraumatic and Normal external nose present HEAD & SCALP: normocephalic and atraumatic FACE & SINUS: normal facial exam and face symmetric NOSE: Normal external nose present Eye: COMMON NORMALS: Equal, round and reactive pupils present and EOMs intact bilaterally PUPIL: Yes Equal, round and reactive pupils present Neck/C-Spine: GENERAL: Yes trachea midline Chest: CHEST: Yes Symmetrical chest wall rise Resp: COMMON NORMALS: normal respiratory effort, No retractions, No use of accessory muscles and clear to auscultation bilaterally AUSCULTATION: clear to auscultation bilaterally Cardio: COMMON NORMALS: regular rhythm RATE: tachycardic RHYTHM: regular rhythm GI: COMMON NORMALS: Normal to inspection, nondistended, normoactive bowel sounds present PALPATION: No Tenderness to palpation present (GI) : COMMON NORMALS: Yes no CVA tenderness BLADDER/KIDNEY EXAM: Yes no CVA tenderness Back/Pelvis: COMMON NORMALS: no CVA tenderness Extremity: COMMON NORMALS: no pedal edema Neuro: JALEEL COMA SCALE: document GCS findings Jaleel coma scale eye opening: Spontaneous [place] coma scale verbal response: Orientated [place] coma scale motor response: Obey commands Jaleel coma scale total score: 15 SENSORY EXAM: Yes extremities (intact) Psych: COMMON NORMALS: speech normal SPEECH: Yes normal speech Skin: COMMON NORMALS: no rashes or lesions noted GENERAL SKIN EXAM: no rashes or lesions noted Course Vital Signs: Vital signs: Vital Signs Temperature 97.8 F 09/02/22 18:33 Pulse Rate 99 09/03/22 01:58 Respiratory Rate 16 09/03/22 01:58 Blood Pressure 117/74 09/03/22 01:58 Pulse Oximetry 97 09/03/22 01:58 Oxygen Delivery Me thod 09/03/22 01:05 MDM - Nausea/Vomiting/Diarrhea Medical Decision Making Blood pressure has been mildly soft while the patient was sleeping, but as improved after bolus. 3 liters of fluid were given. She feels much better. she's no longer nauseated. She will go home on her home medications, but she will take promethazine prophylactically for the next three doses starting in the morning. She knows to return for continued vomiting. She did have three plus ketones in her urine with some blood. Not a significant amount of protein. Her blood pressure was low, not high. Other laboratory testing was not terribly remarkable. Bedside trans abdominal ultrasound was performed, and shows a heart rate of 130 with good movement and essentially appropriate fluid levels. Fetus measures 18 weeks one day by biparietal diameter which is appropriate. Lab Data 09/02/22 19:28 09/02/22 19:28 Laboratory Results WBC 17.0 10^3/uL (4.0-10.0) H 09/02/22 19: RBC 4.10 10^6/uL (4.1-5.3) 09/02/22 19:28 Hgb 11.6 g/dL (11.5-15.3) 09/02/22 19: Hct 35.2 % (37.0-47.0) L 09/02/22 19: MCV 85.9 fl (81-99) 09/02/22 19: MCH 28.3 pg (28.0-34.0) 09/02/22 19: MCHC 33.0 g/dL (30.0-36.0) 09/02/22 19: RDW 12.8 % (12.1-15.1) 09/02/22 19:28 Plt Count 463 10^3/cmm (130-400) H 09/02/22 19:28 MPV 8.5 fL (7.4-10.4) 09/02/22: Neut % (Auto) 78.2 % 09/02/22 19:28 Lymph % (Auto) 14.7 % 09/02/22 19:28 [place] % (Auto) 5.5 % 09/02/22 19:28 Eos % (Auto) 0.4 % 09/02/22 19:28 Baso % (Auto) 0.4 % 09/02/22 19:28 Neut # (Auto) 13.26 10^3/uL (1.8-7.7) H 09/02/22 19:28 Lymph # (Auto) 2.5 10^3/uL (0.8-4.8) 09/02/22 19: [place] # (Auto) 0.9 10^3/uL (0.2-0.9) 09/02/22 19: Eos # (Auto) 0.1 10^3/uL (0.0-0.8) 09/02/22 19: Baso # (Auto) 0.1 10^3/uL (0.0-0.1) 09/02/22 19: Nucleated RBC % (auto) 0 % 09/02/22 19: Nucleated RBCs # 0.0 /100WBC 09/02/22 19:28 Sodium 135 mmol/L (136-145) L 09/02/22 19:28 Potassium 4.3 mmol/L (3.5-5.1) 09/02/22 19: Chloride 99 mmol/L (98-107) 09/02/22 19: Carbon Dioxide 22 mmol/L (22-29) 09/02/22 19:28 Anion Gap 18.3 (5-19) 09/02/22 19:28 BUN 4 mg/dL (6-20) L 09/02/22 19:28 Creatinine 0.4 mg/dL (0.5-0.9) L 09/02/22 19:28 GFR Calculation 192.9 mL/min (90-130) H 09/02/22 19:28 Glucose 105 mg/dL (65-115) 09/02/22 19:28 Calculated Osmolality 277 mOsm/kg (285-295) L 09/02/22 19:28 Calcium 9.7 mg/dL (8.5-10.5) 09/02/22 19:28 Total Bilirubin 0.3 mg/dL (0.15-1.2) 09/02/22 19: AST 17 U/L (0-32) 09/02/22 19: ALT 9 U/L (0-33) 09/02/22 19: Alkaline Phosphatase 90 U/L (35-105) 09/02/22 19: Troponin T Gen 5 ng/L 8 ng/L (0-10) 09/02/22 19: Total Protein 7.1 g/dL (6.6-8.7) 09/02/22 19: Albumin 4.2 g/dL (3.5-5.2) 09/02/22: Globulin 2.9 g/dL (1.3-4.6) 09/02/22: Lipase 18 U/L (13-60) 09/02/22 19: Urine Color Yellow (Yellow) 09/03/22 00:40 Urine Appearance Clear (CLEAR) 09/03/22 00:40 Urine pH 5 (5-7) 09/03/22 00:40 Ur Specific [place] 1.030 (1.005-1.030) 09/03/22 00:40 Urine Protein 2+ (Negative) H 09/03/22 00:40 Urine Glucose (UA) Norm (Normal) 09/03/22 00:40 Urine Ketones 3+ (Negative) H 09/03/22 00:40 Urine Blood 3+ (Negative) H 09/03/22 00:40 Urine Nitrate Negative (Negative) 09/03/22 00:40 Urine Bilirubin 1+ (Negative) H 09/03/22 00:40 Urine Urobilinogen 1 mg/dL (Negative) H 09/03/22 00:40 Ur Leukocyte Esterase Negative (Negative) 09/03/22 00:40 Urine RBC 10-15 /hpf (0-2) H 09/03/22 00:40 Urine WBC 0-4 /hpf (0-5) H 09/03/22 00:40 Ur Squamous Epith Cells 0-4 /hpf (0-5) H 09/03/22 00:40 Amorphous Sediment Not Reportable 09/03/22 00:40 Urine Bacteria 1+ /hpf (NONE) H 09/03/22 00:40 Urine Mucus Trace /hpf 09/03/22 00:40 Discharge Plan Discharge Patient Disposition: Home Clinical Impression: Hyperemesis Condition: Stable Prescriptions: No Action cholecalciferol (vitamin D3) 50 mcg (2,000 unit) capsule 5,000 unit PO BEDTIME aspirin 81 mg capsule 81 mg PO BEDTIME pyridoxine (vitamin B6) 100 mg tablet 100 mg PO BID PRN (Reason: Nausea) Qty: 60 2RF (DME) blood-glucose meter [Accu-Chek Kather[place] Plus Meter] Misc See Rx Instructions .Route Qty: 1 0RF Rx Instructions: As directed (DME) Accu-Chek Katherin Plus test strp Strip See Rx Instructions .Route Qty: 100 3RF Rx Instructions: As directed TID (DME) lancets [Accu-Chek Softclix Lancets] Misc See Rx Instructions .Route Qty: 200 3RF Rx Instructions: As directed TID ondansetron HCl 4 mg tablet 4 mg PO Q8H PRN (Reason: nausea and vomiting) Qty: 30 0RF doxylamine-pyridoxine (vit B6) [Diclegis] 10-10 mg tablet,delayed release (DR/EC) 1 tab PO BID Qty: 90 0RF Folplex 2.2 2.2-25-0.5 mg tablet 1 tab PO BEDTIME Multivitamins 28 mg iron- 800 mcg Tablet 1 tab PO BEDTIME promethazine 25 mg tablet 25 mg PO Q6H PRN (Reason: nausea and vomiting) Qty: 20 0RF Discharge Orders: Discharge ED (Routine); Ordered 09/03/22 Ordered By: Alex Echevarria Referrals: Graciela Pearl MD [Primary Care Provider] - Azael Prasad MD [Physician] - 4-7 days Patient Instructions: Hyperemesis Gravidarum (ED) Activity Restrictions/Additional Instructions: Take your promethazine 3 times tomorrow 6 to 8 hours apart whether you feel nauseated or not. Then you may go back to as needed medication follow a liquid diet for the first 12 hours, and if you are doing well at that point, start with bland foods. Return for fever greater than 100, abdominal pain, continued vomiting despite treatment, any other concerning symptoms. Coding Level of Care Code ED Pv Design And Installation Technician for Chg Vinny
== END 2022-09-03 01:59 | disposition home or self-care (01) ==
PROVIDERS: Emergency Provider Emergency Medicine; PCP Family Medicine
DX: O21.0 Mild hyperemesis gravidarum (principal); Z3A.17 17 weeks gestation of pregnancy
CPT/HCPCS: 36415; 80053; 81001; 83690; 84484; 85025; 96361; 96374; 96375; 99284; J2405; J2765; J7030

== ENCOUNTER 2022-09-19 16:13 | Emergency (ER) | payer BC, SELFPAY ==
[2022-09-19 16:21] VITALS: BP 119/75; PULSE 115; RESP 18; TEMP 36.6; O2SAT 98
[2022-09-19 17:34] LABS: Basophils # 0.1 10^3/uL (0.0-0.1); Basophils % 0.4 %; Eosinophils # 0.2 10^3/uL (0.0-0.8); Eosinophils % 1.2 %; Hematocrit 33.4 % (37.0-47.0); Hemoglobin 11.1 g/dL (11.5-15.3); Mean Corpuscular HGB Conc 33.2 g/dL (30.0-36.0); Mean Corpuscular Hemoglobin 28.7 pg (28.0-34.0); Mean Corpuscular Volume 86.3 fl (81-99); Mean Platelet Volume 8.4 fL (7.4-10.4); Monocytes # 0.8 10^3/uL (0.2-0.9); Monocytes % 5.8 %; Neutrophils # 10.17 10^3/uL (1.8-7.7); Nucleated Red Blood Cells % 0 %; Platelet Count 412 10^3/cmm (130-400); Red Blood Count 3.87 10^6/uL (4.1-5.3); Red Cell Distribution Width 12.8 % (12.1-15.1); White Blood Count 14.3 10^3/uL (4.0-10.0)
[2022-09-19 17:53] LABS: Alanine Aminotransferase 6 U/L (0-33); Albumin Level 3.9 g/dL (3.5-5.2); Alkaline Phosphatase 87 U/L (35-105); Anion Gap 14.7 (5-19); Aspartate Amino Transferase 10 U/L (0-32); Blood Urea Nitrogen 4 mg/dL (6-20); Calcium 10.1 mg/dL (8.5-10.5); Carbon Dioxide 23 mmol/L (22-29); Chloride 99 mmol/L (98-107); Globulin 3.3 g/dL (1.3-4.6); Glomerular Filtration Rate 192.9 mL/min (90-130); Glucose 93 mg/dL (65-115); Osmolality Calculated 273 mOsm/kg (285-295); Potassium 3.7 mmol/L (3.5-5.1); Sodium 133 mmol/L (136-145); Total Bilirubin 0.3 mg/dL (0.15-1.2); Total Protein 7.2 g/dL (6.6-8.7)
[2022-09-19 18:48] LABS: Add Urine Microscopic? YES; Bilirubin Urine Neg (Negative); Blood Urine 2+ (Negative); Glucose Urine UA Norm (Normal); Ketones Urine 3+ (Negative); Leukocyte Esterase Urine Negative (Negative); Nitrate Urine Negative (Negative); Protein Urine Neg (Negative); Urine Appearance Clear (CLEAR); Urine Color Yellow (Yellow); Urobilinogen Urine Neg (Negative); pH Urine 6 (5-7)
[2022-09-19 18:52] LABS: Add Urine Culture? No; Bacteria Urine 2+ /hpf; Mucus Urine 2+ /hpf; RBC Urine 0-4 /hpf (0-2); WBC Urine 0-4 /hpf (0-5)
[2022-09-19] MEDS: sodium chloride 0.9% 1,000 ML 999 ML IV (18:59)
[2022-09-19 19:00] VITALS: BP 121/77; PULSE 109; RESP 18; O2SAT 98
--- NOTE | 2022-09-19 19:02 | ED_ITS ---
HPI - Nausea/Vomiting/Diarrhea General: Chief complaint: Nausea/Vomiting/Diarrhea Stated complaint: 19wk preg, n/v Time Seen by Provider: 09/19/22 18:33 Source: patient Mode of arrival: ambulatory Limitations: no limitations History of Present Illness: Patient presents to the emergency department today for evaluation treatment of continued chronic nausea, vomiting in . Patient indicates that she and her conceived via IVF and this is their first . She has been dealing with hyperemesis gravidarum since the beginning of her . Patient reports she has medications such as Phenergan, Reglan, and Zofran at home but continues to have issues with tolerating intake due to vomiting. Patient denies abdominal pains or cramping. She is not having any vaginal bleeding and states she has felt movement today. Patient reports she often comes in and receives fluids and IV Zofran which seems to help. Patient is 19 weeks and 5 days. OB was notified and they instructed her to come to the emergency department as she is still less than 20 weeks. Patient denies any cough or congestion. She denies any fevers. Associated nausea: Yes Associated symtoms: Reports nausea Review of Systems General: Reports: 10 or more systems reviewed and unremarkable except in HPI and below GI: Reports: nausea and vomiting; Denies: GI cramping : Denies: vaginal bleeding, vaginal discharge or pelvic pain [facility] ED PFSH: Medical History Depression Dysfunctional uterine bleeding GERD without esophagitis Irritable bowel Migraine with aura, not intractable, without status migrainosus Polycystic ovarian syndrome Irregular cycles since menarche, longest up to 1 year without cycle, with increased acne problems. Diagnosed with PCOS in 2015. Surgical History S/P laparoscopic cholecystectomy (~2019) [facility]. Family History Grandmother Hypertension Maternal Hyperlipidemia Maternal Mother Hyperlipidemia Social History Smoking and tobacco status: never smoked Second hand smoke exposure: No Smoking risk assessment/counseling performed?: No Alcohol intake: unknown Desire information about alcohol rehabilitation?: No Counseling given: No Desire information about substance/drug rehabilitation?: No Counseling given: No Adopted: No Caregiver/support person: No Lives independently: Yes Household members: spouse Housing: House Marital status: Number of children: 0 service: No Current occupational status: employed Pets and animals: Yes Pets & animals: dog(s) History of recent travel: No Current gender identity: Female Female Reproductive History: Date of last menstrual period: 05/05/22 Physical Exam Narrative: EXAM NARRATIVE: FHT 149 Const: COMMON NORMALS: no acute distress, average body habitus, patient oriented x3 and alert HENMT: COMMON NORMALS: normocephalic, atraumatic, hearing grossly normal bilaterally and moist oral mucous membranes HEAD & SCALP: normocephalic and atraumatic Eye: COMMON NORMALS: Equal, round and reactive pupils present, EOMs intact bilaterally and conjunctivae normal CONJUNCTIVA: Yes conjunctivae normal PUPIL: Yes Equal, round and reactive pupils present Neck/C-Spine: COMMON NORMALS: no JVD Lymph: LYMPHATIC: no lymphadenopathy noted Resp: COMMON NORMALS: normal respiratory effort, No retractions and No use of accessory muscles Cardio: COMMON NORMALS: no JVD and regular rate RATE: regular rate GI: COMMON NORMALS: Normal to inspection, nondistended, normoactive bowel sounds present Extremity: COMMON NORMALS: normal to inspection, full ROM and capillary refill normal Neuro: COMMON NORMALS: patient oriented x3 SENSORIUM/ORIENTATION: Yes alert Psych: COMMON NORMALS: mental status grossly normal, cooperative, normal affect, speech normal and activity/motor behavior normal SPEECH: Yes normal speech Course Vital Signs: Vital signs: Vital Signs Temperature 97.9 F 09/19/22 16:21 Pulse Rate 98 09/19/22 20:58 Respiratory Rate 18 09/19/22 20:58 Blood Pressure 117/82 09/19/22 20:58 Pulse Oximetry 99 09/19/22 20:58 Oxygen Delivery Me thod 09/19/22 16:21 MDM - Nausea/Vomiting/Diarrhea Medical Decision Making Patient presents to the emergency department with continued issues of vomiting during . Lab work is nonacute for any significant elevated white blood cell count or severe dehydration however, patient did benefit from IV fluids here in the ER as well as IV Zofran. After discussion, patient would like to have Phenergan suppositories to try for her nausea at home. I did discuss with her positive findings of bacteria as well as white blood cells in her urine. Given her positive status, I would like to go ahead and treat with antibiotics as we continue culturing out the urine specimen. Given the patient's allergies to medications, up-to-date indicated Macrobid was an appropriate first-line choice for UTI in for women in their second trimester. Patient was given return precautions for any change or worsening of vomiting or any new onset of abdominal cramps or vaginal bleeding. Differential Diagnosis Likely gastroenteritis (Hyperemesis ); Unlikely traveler's diarrhea, food poisoning, clostridium difficile infection, drug-induced nausea and vomiting or dehydration Lab Data 09/19/22 17:09/19/22: Laboratory Results WBC 14.3 10^3/uL (4.0-10.0) H 09/19/22: RBC 3.87 10^6/uL (4.1-5.3) L 09/19/22: Hgb 11.1 g/dL (11.5-15.3) L 09/19/22: Hct 33.4 % (37.0-47.0) L 09/19/22: MCV 86.3 fl (81-99) 09/19/22: MCH 28.7 pg (28.0-34.0) 09/19/22: MCHC 33.2 g/dL (30.0-36.0) 09/19/22: RDW 12.8 % (12.1-15.1) 09/19/22: Plt Count 412 10^3/cmm (130-400) H 09/19/22: MPV 8.4 fL (7.4-10.4) 09/19/22: Neut % (Auto) 71.0 % 09/19/22: Lymph % (Auto) 21.0 % 09/19/22: [place] % (Auto) 5.8 % 09/19/22: Eos % (Auto) 1.2 % 09/19/22: Baso % (Auto) 0.4 % 09/19/22 Neut # (Auto) 10.17 10^3/uL (1.8-7.7) H 09/19/22 17:26 Lymph # (Auto) 3.0 10^3/uL (0.8-4.8) 09/19/22 17: [place] # (Auto) 0.8 10^3/uL (0.2-0.9) 09/19/22 17:26 Eos # (Auto) 0.2 10^3/uL (0.0-0.8) 09/19/22 17: Baso # (Auto) 0.1 10^3/uL (0.0-0.1) 09/19/22 17: Nucleated RBC % (auto) 0 % 09/19/22 17: Nucleated RBCs # 0.0 /100WBC 09/19/22 17: Sodium 133 mmol/L (136-145) L 09/19/22 17: Potassium 3.7 mmol/L (3.5-5.1) 09/19/22 17: Chloride 99 mmol/L (98-107) 09/19/22 17: Carbon Dioxide 23 mmol/L (22-29) 09/19/22 17:26 Anion Gap 14.7 (5-19) 09/19/22 17:26 BUN 4 mg/dL (6-20) L 09/19/22 17: Creatinine 0.4 mg/dL (0.5-0.9) L 09/19/22 17:26 GFR Calculation 192.9 mL/min (90-130) H 09/19/22 17: Glucose 93 mg/dL (65-115) 09/19/22 17: Calculated Osmolality 273 mOsm/kg (285-295) L 09/19/22 17: Calcium 10.1 mg/dL (8.5-10.5) 09/19/22 17: Total Bilirubin 0.3 mg/dL (0.15-1.2) 09/19/22 17: AST 10 U/L (0-32) 09/19/22 17: ALT 6 U/L (0-33) 09/19/22 17:26 Alkaline Phosphatase 87 U/L (35-105) 09/19/22 17: Total Protein 7.2 g/dL (6.6-8.7) 09/19/22 17:26 Albumin 3.9 g/dL (3.5-5.2) 09/19/22 17:26 Globulin 3.3 g/dL (1.3-4.6) 09/19/22 17:26 Urine Color Yellow (Yellow) 09/19/22 18:30 Urine Appearance Clear (CLEAR) 09/19/22 18:30 Urine pH 6 (5-7) 09/19/22 18:30 Ur Specific [place] 1.020 (1.005-1.030) 09/19/22 18:30 Urine Protein Neg (Negative) 09/19/22 18:30 Urine Glucose (UA) Norm (Normal) 09/19/22 18:30 Urine Ketones 3+ (Negative) H 09/19/22 18: Urine Blood 2+ (Negative) H 09/19/22 18:30 Urine Nitrate Negative (Negative) 09/19/22 18:30 Urine Bilirubin Neg (Negative) 09/19/22 18:30 Urine Urobilinogen Neg mg/dL (Negative) 09/19/22 18:30 Ur Leukocyte Esterase Negative (Negative) 09/19/22 18:30 Urine RBC 0-4 /hpf (0-2) H 09/19/22 18:30 Urine WBC 0-4 /hpf (0-5) H 09/19/22 18:30 Ur Squamous Epith Cells 10-15 /hpf (0-5) H 09/19/22 18:30 Amorphous Sediment Not Reportable 09/19/22 18:30 Urine Bacteria 2+ /hpf (NONE) H 09/19/22 18:30 Urine Mucus 2+ /hpf 09/19/22 18:30 Other Data T 149 Discharge Plan Discharge Patient Disposition: Home Clinical Impression: Vomiting during Condition: Stable Prescriptions: New Macrobid 100 mg capsule 100 mg PO BID 7 Days Qty: 14 0RF Rx Instructions: must administer with a meal/food promethazine 25 mg suppository 25 mg [place] Q6H PRN (Reason: nausea and vomiting) Qty: 24 0RF No Action cholecalciferol (vitamin D3) 50 mcg (2,000 unit) capsule 5,000 unit PO BEDTIME aspirin 81 mg capsule 81 mg PO BEDTIME pyridoxine (vitamin B6) 100 mg tablet 100 mg PO BID PRN (Reason: Nausea) Qty: 60 2RF (DME) blood-glucose meter [Accu-Chek Katherin Plus Meter] Misc See Rx Instructions .Route Qty: 1 0RF Rx Instructions: As directed (DME) Accu-Chek Katherin Plus test strp Strip See Rx Instructions .Route Qty: 100 3RF Rx Instructions: As directed TID (DME) lancets [Accu-Chek Softclix Lancets] Misc See Rx Instructions .Route Qty: 200 3RF Rx Instructions: As directed TID metoclopramide HCl [Reglan] 5 mg tablet 5 mg PO DAILY PRN (Reason: nausea and vomiting) Qty: 14 0RF ondansetron HCl 4 mg tablet 4 mg PO Q8H PRN (Reason: nausea and vomiting) Qty: 30 0RF doxylamine-pyridoxine (vit B6) [Diclegis] 10-10 mg tablet,delayed release (DR/EC) 1 tab PO BID Qty: 90 0RF Folplex 2.2 2.2-25-0.5 mg tablet 1 tab PO BEDTIME Multivitamins 28 mg iron- 800 mcg Tablet 1 tab PO BEDTIME promethazine 25 mg tablet 25 mg PO Q6H PRN (Reason: nausea and vomiting) Qty: 20 0RF Discharge Orders: Discharge ED (Routine); Ordered 09/19/22 Ordered By: Marisabel Elmore Referrals: Graciela Pearl MD [Primary Care Provider] - Discharge Diet: Advance as tolerated Discharge Activity: Increase activity as tolerated Patient Instructions: Hyperemesis Gravidarum (ED) Activity Restrictions/Additional Instructions: Your urinalysis does show quite a bit of bacteria as well as white blood cells concerning for an active urinary tract infection. I have asked the lab to culture out your urine to determine the bacterial cause so we can be sure the antibiotics you are being started on are appropriate to fully treat this in fection. Given your allergies and limitations to antibiotic use due to your we are starting you on Macrobid. This medication is approved in second trimester . It may make your urine a little orange in color while you are taking it. I have also prescribed you Phenergan suppositories to try to see if you get relief from your nausea and vomiting with this medication. Continue to keep a close eye on your symptoms. If you have any abdominal cramping, vaginal bleeding, or concerns of dehydration need to be seen and reevaluated again. Coding Level of Care Code ED Director Of Sports Performance for Chg Fwd Exam Comprehensive
--- NOTE | 2022-09-19 19:06 | PC.NURSE ---
REPORT GIVEN TO SASHA CANELA ASSUMED CARE.
[2022-09-19] MEDS: ondansetron 2 mg/ML SDV 2 mL 4 MG IVP (19:28)
[2022-09-19 20:58] VITALS: BP 117/82; PULSE 98; RESP 18; O2SAT 99
== END 2022-09-19 20:59 | disposition home or self-care (01) ==
PROVIDERS: Physician Assistant; Emergency Provider Physician Assistant; PCP Family Medicine
DX: O21.9 Vomiting of pregnancy, unspecified (principal); Z3A.19 19 weeks gestation of pregnancy; Z79.82 Long term (current) use of aspirin
CPT/HCPCS: 36415; 80053; 81001; 85025; 87086; 96374; 99284; J2405; J7030

== ENCOUNTER 2022-09-28 11:05 | Outpatient (CLI) | payer BC, SELFPAY ==
--- NOTE | 2022-09-28 11:00 | US_ITS ---
WS: [id number] OBSTETRICAL ULTRASOUND COMPLETE HISTORY: Anatomy US - 6 weeks from now COMPARISON: 08/03/2022 Single intrauterine gestation in breech presentation. Cervix is Closed and normal length. Cervical length is 4.1 cm. Normal amount of amniotic fluid surrounds the fetus. Placenta: Posterior and fundal, no previa or abruption. Placenta grade 0 Heart: 144 BPM. Limited visualization of the 4 chambers. LEFT ventricular outflow tract is negative. Nonvisualized RIGHT ventricular outflow tract. Anatomy: Poorly visualized spine. Intracranial structures are normal. Stomach and bladder are negativ e. Visualized kidneys. Abdominal wall, three-vessel cord and cord insertion site are normal. 4 extremities are present. profile: Not visualized. Gender: Male. measurements: BPD = 5.1 cm = 21w3d HC = 20.3 cm = 22w3d AC = 18.4 cm = 23w1d FL = 3.5 cm = 20w6d EFW: 481 g. 62 % Biometry is internally concordant. AGA by ultrasound: 22w0d GEORGI by ultrasound: 02/01/2023 US/US OB >= 14 weeks fetus [id number] IMPRESSION: 1. Single intrauterine gestation of 22w0d with an GEORGI of 02/01/2023. Appropria te growth since the prior ultrasound. 2. Anatomic screening survey is limited by position of the fetus and maternal body habitus. Recommend 2-3 week follow-up to reevaluate the spine, heart , profile and kidneys.
== END 2022-09-28 11:06 | disposition home or self-care (01) ==
PROVIDERS: PCP Family Medicine; Visit Provider Family Medicine
DX: Z34.00 Encounter for supervision of normal first pregnancy, unspecified trimester (principal)
CPT/HCPCS: 76805

== ENCOUNTER 2022-10-19 07:10 | Outpatient (CLI) | payer BC, SELFPAY ==
--- NOTE | 2022-10-19 07:15 | US_ITS ---
WS: [id number] ULTRASOUND OB FOCUSED HISTORY: Reevaluate spine, heart, profile and kidneys. COMPARISON: 09/28/2022 Single intrauterine gestation in breech position. Normal amount of surrounding amniotic fluid. Placen ta is posterior. heart rate at 138 BPM. Reevaluation of spine is normal. Normal kidneys. Limited but negative profile. heart cont inues to be limited. US/US OB limited [id number] IMPRESSION: 1. Limited evaluation of the heart. 2. Additional imaging of the spine, profile and kidneys is negative.
== END 2022-10-19 07:11 | disposition home or self-care (01) ==
PROVIDERS: PCP Family Medicine; Visit Provider Family Medicine
DX: Z34.00 Encounter for supervision of normal first pregnancy, unspecified trimester (principal)
CPT/HCPCS: 76815

== ENCOUNTER → 2022-10-28 08:01 | Outpatient (BNVA) | payer BC, SELFPAY | PROVIDERS: PCP Family Medicine; Visit Provider Family Medicine | DX: Z23 Encounter for immunization (principal); Z34.00 Encounter for supervision of normal first pregnancy, unspecified trimester | CPT/HCPCS: 82950 ==

== ENCOUNTER 2022-11-24 08:36 | Outpatient (CLI) | payer BC, SELFPAY ==
--- NOTE | 2022-11-24 08:45 | US_ITS ---
WS: [id number] ULTRASOUND OB FOCUSED HISTORY: Follow up US on heart and outflow tracts COMPARISON: 09/28/2022. Additional imaging the heart is submitted. Outflow tracts are much better visualized today. No septal defects and normal size of the outflow tracts. heart rate at 144 BPM. US/US OB limited [id number] IMPRESSION: Normal additional imaging of the cardiac outflow tracts.
== END 2022-11-24 08:37 | disposition home or self-care (01) ==
LOC: RAD 08:38
PROVIDERS: PCP Family Medicine; Visit Provider Family Medicine
DX: Z34.00 Encounter for supervision of normal first pregnancy, unspecified trimester (principal)
CPT/HCPCS: 76815

== ENCOUNTER → 2022-12-19 08:01 | Outpatient (BNVA) | payer BC, SELFPAY | PROVIDERS: PCP Family Medicine; Visit Provider Clinical Nurse Specialist Adult Health | DX: H66.011 Acute suppurative otitis media with spontaneous rupture of ear drum, right ear (principal) | CPT/HCPCS: 87426 ==

== ENCOUNTER → 2022-12-23 08:38 | Outpatient (BNVA) | payer BC, SELFPAY | PROVIDERS: PCP Family Medicine; Visit Provider Family Medicine | DX: Z34.00 Encounter for supervision of normal first pregnancy, unspecified trimester (principal); Z51.81 Encounter for therapeutic drug level monitoring | CPT/HCPCS: 85025; 86592 ==

== ENCOUNTER 2023-01-11 14:18 | Outpatient (CLI) | payer BC, SELFPAY ==
[2023-01-11] VITALS (13 sets, daily range): BP systolic 119–140; BP diastolic 76–89; PULSE 99–123; TEMP 36.1; BMI 43.6
--- NOTE | 2023-01-11 15:34 | USR_ITS ---
PROCEDURE INFORMATION: Exam: US Biophysical Profile Without Non-Stress Test Exam date and time: 01/11/2023 3:59 PM Age: 27 years old Clinical indication: Other: Contractions; ; Additional info: Deceleration, carol and bpp TECHNIQUE: Imaging protocol: US biophysical profile without non-stress testing. COMPARISON: US OB >= 14 weeks fetus [id number] 09/28/2022 11:19 AM FINDINGS: heart rate: 147 bpm presentation: Cephalic Placenta: Posterior fundal. Amniotic fluid index: CAROL is 10 cm. BIOPHYSICAL PROFILE: breathing movement (BPP): 0/2 body movement (BPP): 2/2 tone (BPP): 2/2 Amniotic fluid (BPP): 2/2 Biophysical profile score (BPP): 6/8 MATERNAL ANATOMY: Cervix: Nonvisualized. US/US OB BPP wo NST [id number] IMPRESSION: 1. Biophysical profile score of 6/8. No visible breathing movements.
[2023-01-11] MEDS: lactated ringers 1,000 ML 999 ML IV (15:59)
[2023-01-11 16:21] LABS: Add Urine Microscopic? YES; Bacteria Urine TRACE /hpf; Bilirubin Urine Neg (Negative); Blood Urine 2+ (Negative); Glucose Urine UA Norm (Normal); Ketones Urine Negative (Negative); Leukocyte Esterase Urine Negative (Negative); Mucus Urine TRACE /hpf; Nitrate Urine Negative (Negative); Protein Urine Trace (Negative); RBC Urine 0-4 /hpf (0-2); Specific Gravity, Urine 1.025 (1.005-1.030); Squamous Epithelial Cell Urine 0-4 /hpf (0-5); Urine Appearance Clear (CLEAR); Urine Color Yellow (Yellow); Urobilinogen Urine Norm (Negative); WBC Urine 0-4 /hpf (0-5); pH Urine 6 (5-7)
[2023-01-11 16:22] LABS: Add Urine Culture? No
[2023-01-11] MEDS: nitrofurantoin SR (BID) 100 mg Capsule PO (17:32)
== END 2023-01-11 17:34 | disposition home or self-care (01) ==
LOC: OPOB 14:24 → OBGYN 14:26
PROVIDERS: PCP Family Medicine; Visit Provider Family Medicine
DX: O47.9 False labor, unspecified (principal); Z3A.00 Weeks of gestation of pregnancy not specified
CPT/HCPCS: 36415; 59025; 76819; 81001; 87086; 99211; J7120

== ENCOUNTER 2023-01-13 06:30 | Outpatient (CLI) | payer BC, SELFPAY ==
--- NOTE | 2023-01-13 06:45 | US_ITS ---
WS: [id number] LIMITED OBSTETRICAL ULTRASOUND HISTORY: Measuring LGA - need US in next 1-2 weeks COMPARISON: 01/11/2023, 08/03/2022, Presentation: Vertex Cervix: Closed and normal length. Placenta: Fundal, no previa or abruption. Minimal comma likely echogenicities are noted extending thr ough the placenta. Grade: 3 HEART: FHR of 160 BPM. measurements: BPD = 8.9 cm = 36w1d; 61st percentile HC = 32.7 cm = 37w0d; 42nd percentile AC = 33.1 cm = 37w0d; 82nd percentile FL = 7.1 cm = 36w1d; 47th percentile Several normal pockets of amniotic fluid identified. Largest vertical pocket is greater than 3 cm. EFW: 3013 g; 78th percentile AGA by ultrasound: 36w4d GEORGI by ultrasound: 02/06/2023 Measurements are internally concordant. Appropriate growth since the first trimester ultrasound. US/US OB limited [id number] IMPRESSION: 1. Single intrauterine gestation of 36 weeks 4 days with an EDC of 02/06/2023. Appropriate growth since the first trimester ultrasound. 2. Estimated weight at the 78th percentile for age. 3. Early grade 3 placenta.
== END 2023-01-13 06:31 | disposition home or self-care (01) ==
LOC: RAD 06:33
PROVIDERS: PCP Family Medicine; Visit Provider Family Medicine
DX: O36.63X0 Maternal care for excessive fetal growth, third trimester, not applicable or unspecified (principal); O26.893 Other specified pregnancy related conditions, third trimester; R03.0 Elevated blood-pressure reading, without diagnosis of hypertension; Z3A.36 36 weeks gestation of pregnancy; Z51.81 Encounter for therapeutic drug level monitoring
CPT/HCPCS: 76815; 80053; 82570; 84156; 84550; 85025; 87081

== ENCOUNTER 2023-01-21 19:20 | Outpatient (CLI) | payer BC, SELFPAY ==
[2023-01-21 19:52] LABS: Urine Total Protein 37.1 mg/dL (0-150)
[2023-01-21 20:02] LABS: Total Volume, Urine 2350 mL; Urine Total Protein 24 Hour 871.9 mg/24hr (0-150)
== END 2023-01-21 19:21 | disposition home or self-care (01) ==
PROVIDERS: PCP Family Medicine; Visit Provider Family Medicine
DX: Z34.00 Encounter for supervision of normal first pregnancy, unspecified trimester (principal); R03.0 Elevated blood-pressure reading, without diagnosis of hypertension
CPT/HCPCS: 84156

== ENCOUNTER 2023-01-22 10:32 | Inpatient (IN) | payer BC, SELFPAY ==
[2023-01-22] VITALS (48 sets, daily range): BP systolic 97–148; BP diastolic 52–104; PULSE 93–126; RESP 15–18; TEMP 36.7–36.9; O2SAT 97–99; BMI 43.7
[2023-01-22 08:25] LABS: Basophils # 0.1 10^3/uL (0.0-0.1); Basophils % 0.5 %; Eosinophils # 0.2 10^3/uL (0.0-0.8); Eosinophils % 1.2 %; Hematocrit 33.4 % (37.0-47.0); Hemoglobin 10.7 g/dL (11.5-15.3); Lymphocytes # 2.7 10^3/uL (0.8-4.8); Lymphocytes % 21.1 %; Mean Corpuscular Hemoglobin 26.1 pg (28.0-34.0); Mean Corpuscular Volume 81.5 fl (81-99); Mean Platelet Volume 10.2 fL (7.4-10.4); Neutrophils # 8.62 10^3/uL (1.8-7.7); Neutrophils % 67.8 %; Nucleated Red Blood Cells % 0 %; Platelet Count 322 10^3/cmm (130-400); Red Cell Distribution Width 14.9 % (12.1-15.1); White Blood Count 12.7 10^3/uL (4.0-10.0)
[2023-01-22 08:44] LABS: Slide Review Slide Review Perform
[2023-01-22 08:45] LABS: Alanine Aminotransferase < 5 U/L (0-33); Albumin Level 3.4 g/dL (3.5-5.2); Alkaline Phosphatase 155 U/L (35-105); Anion Gap 15.2 (5-19); Aspartate Amino Transferase 17 U/L (0-32); Blood Urea Nitrogen 8 mg/dL (6-20); Calcium 8.7 mg/dL (8.5-10.5); Carbon Dioxide 18 mmol/L (22-29); Chloride 103 mmol/L (98-107); Globulin 3.3 g/dL (1.3-4.6); Glomerular Filtration Rate 266.9 mL/min (90-130); Glucose 101 mg/dL (65-115); Osmolality Calculated 272 mOsm/kg (285-295); Potassium 4.2 mmol/L (3.5-5.1); Sodium 132 mmol/L (136-145); Total Bilirubin 0.2 mg/dL (0.15-1.2); Total Protein 6.7 g/dL (6.6-8.7); Uric Acid 5.1 mg/dL (2.4-5.7)
[2023-01-22] MEDS: acetaminophen 500 mg Tablet 1000 MG PO (09:05)
--- NOTE | 2023-01-22 10:11 | PM.HP ---
Providers/Chief Complaint Primary Care Provider: Graciela Pearl MD Chief Complaint: increased blood pressure and headache History of Present Illness Tete Pearl is a 27 year old @ 37.3 wks by LMP c/w IVF. Preg c/b IVF, h/o prediabetes on Metformin previously, obesity, 1st TM spotting, anemia - taking iron, now with preeclampsia without severe features. The patient presented to labor and delivery triage secondary to headache and elevated blood pressures at home. She has been having blood pressures in the 130s over 90s and occasionally 140s over 90s. She had been resting more but they persisted. We got a 24-hour urine protein done and results came back yesterday at 871. In triage the patient's blood pressures were in the 120s to 140s over 80s to 90s. The patient has had some shortness of breath with exertion as well as some nausea. She denies chest pains, visual changes, vomiting, diarrhea, constipation, dysuria, leakage of fluid, vaginal bleeding, contractions. Medications/Allergies Home Medications Medication Instructions Recorded Confirmed Last Taken Type vit no.95-ferrous 1 tab PO BEDTIME 07/19/22 01/22/23 1 Day Ago History fumarate 28 mg-folic acid 800 mcg ~01/21/23 tablet ( Multivitamins) 1 promethazine 25 mg rectal 25 mg NH Q6H PRN nausea and 11/01/22 01/22/23 Unknown Rx suppository vomiting #24 ea promethazine 25 mg tablet 25 mg PO Q6H PRN nausea and 11/01/22 01/22/23 Unknown Rx vomiting #20 tabs doxylamine 10 mg-pyridoxine (vit 1 tab PO DIRECTED PRN Nausea 01/22/23 01/22/23 Unknown History B6) 10 mg tablet,delayed release And Vomiting (Diclegis) Allergies Allergy/AdvReac Type Severity Reaction Status Date / Time cefdinir Allergy ADR-Cramping Verified 01/11/23 16:23 of the Muscles sumatriptan [From Imitrex] Allergy swelling Verified 01/11/23 16:23 PFSH Acute PFSH: Medical History Depression Dysfunctional uterine bleeding GERD without esophagitis Irritable bowel Migraine with aura, not intractable, without status migrainosus Polycystic ovarian syndrome Irregular cycles since menarche, longest up to 1 year without cycle, with increased acne problems. Diagnosed with PCOS in 2015. Surgical History S/P laparoscopic cholecystectomy (~2019) [facility]. Family History Grandmother Hypertension Maternal Hyperlipidemia Maternal Mother Hyperlipidemia Social History Smoking and tobacco status: never smoked Second hand smoke exposure: No Smoking risk assessment/counseling performed?: No Alcohol intake: unknown Desire information about alcohol rehabilitation?: No Counseling given: No Substance/Drug Use: never Desire information about substance/drug rehabilitation?: No Counseling given: No Adopted: No Caregiver/support person: No Lives independently: Yes Household members: spouse Housing: House Marital status: Number of children: 0 service: No Current occupational status: employed Pets and animals: Yes Pets & animals: dog(s) Do you think of yourself as: Straight/Heterosexual Current gender identity: Female Female Reproductive History: : 1 Vitals/I&O/Wt Last Vital Signs Pulse 93 01/22/23 10:02 BP 132/80 01/22/23 10:02 Weight last 48 hrs Weight 255 lb Physical Exam Narrative: General: Alert and oriented x3 Eyes: Pupils equal round and reactive to light and accommodation Mouth: Mucous membranes moist, pharynx non-erythematous Cardiac: Regular rate and rhythm without murmurs Lungs: Clear to auscultation bilaterally without wheezes, crackles or rhonchi Abdomen: Soft, non-tender, fundus consistent with gestational age Extremities: +1 pitting edema in the bilateral lower extremities. Reflexes are normal. Data 01/22/23 08:05 01/22/23 08:05 A&P Assessment and plan (1) Preeclampsia: The patient has a new diagnosis of preeclampsia with blood pressures in the 140s over 90s at the highest. The patient has a headache that is not clearing with Tylenol. She has some associated nausea. Outside of this she is stable. Since she is 37.3 weeks gestation with a diagnosis of preeclampsia, it was felt best to proceed with induction of labor. I discussed the possible complications of proceeding with versus proceeding with induction of labor and the patient is in agreement with induction at this time. We will plan to start with Cytotec as she is currently closed, thick and high. The patient may have a laboring epidural when she is 3 cm dilated. We will watch for signs of complications. Currently she seems to have no severe features. She is GBS negative. All questions were answered. The patient and her are in agreement with current plan of care. (2) Supervision of normal intrauterine in primigravida: Attestations Medical Necessity Statement*: The patient will be here for greater than 2 midnights due to routine intrapartum and management of labor and delivery. Coding Level of Care Code Acute Code for Chg Fwd Diagnoses Preeclampsia O14.90 Supervision of normal intrauterine in primigravida Z34.00
[2023-01-22] MEDS: miSOPROStol 100 mcg tablet 25 MCG VAGINAL ×2 (10:39→14:52)
--- NOTE | 2023-01-22 11:35 | PC.NURSE ---
Ultrasound performed at bedside by Laya RN to confirm vertex presentation of baby. Pt verbalized understanding and denies further needs/concerns at this time.
[2023-01-22] MEDS: dextrose 5%-lactated ringers 1,000 ML 999 ML IV (16:13)
[2023-01-22] MEDS: lactated ringers 1,000 ML 999 ML IV (17:02)
--- NOTE | 2023-01-22 17:32 | P.MISC_ITS ---
Miscellaneous Note Note: The patient had been doing well, however she began having late decelerations that have now become recurrent. The patient has been penelope every 1 to 3 minutes and we have been giving fluid boluses as well as changing positions. The patient last received a dose of Cytotec at approximately 2:50 PM and the decelerations are persistent. I spoke with the patient and her family regarding the concerning findings and that the baby is not tolerating labor at this time. Because of this I have recommended that we go back for a urgent section. The patient is in agreement. We will proceed with a primary low- transverse section secondary to intolerance of labor. Currently heart tones are in the 150s with moderate variability and recurrently decelerations. Contractions are every 1 to 3 minutes. We may try a dose of terbutaline to help decrease contractions prior to surgery.
[2023-01-22] MEDS: terbutaline 1 mg/mL INJ 0.25 MG SUBCUT (17:45)
[2023-01-22] MEDS: famotidine 20 mg/2 mL INJ IVP (17:46)
[2023-01-22] MEDS: citric acid-sodium citrate 30 mL UDC PO (17:46)
[2023-01-22] MEDS: metoclopramide 5 mg/mL SDV 2 mL 10 MG IVP (17:46)
--- NOTE | 2023-01-22 18:04 | P.ANESASSM_ITS ---
Pre-Anesthetic Assessment Height/Weight: Height 1.63 m Weight 115.666 kg Pulse Resp BP O2 Del Method 111 H 15 134/93 Room Air 01/22/23 17:46 01/22/23 09:41 01/22/23 17:46 01/22/23 16:30 Familial anesthetic complications: None Was Beta Surya taken within 24 hours: N/A Was Clonidine taken within 24 hours: N/A Social No alcohol and No tobacco Exam alert, oriented x 3, clear to auscultation bilaterally and regular rate & rhythm Airway Submandibular: within normal limits Cervical ROM: within normal limits Mallampati: Class III Dentition: full History/ROS No significant history except as noted and No significant complaints Pulmonary None reported CV/HEM Hypertension (Gestational, just within the last week) None reported Hepatic None reported GI Gastroesophageal Reflux Disease Metabolic Morbid Obesity [facility] [place] None reported Neuropsych Anxiety Anesthetic Plan ASA status: 2 Anesthesia: Anesthesia Evaluation, General and Regional (specify below) (SAB) Risk of > 500 ml blood loss (7ml/kg in children): Yes, adequate IV access and fluids planned Medications/Allergies Home Medications Medication Instructions Recorded Confirmed Last Taken Type vit no.95-ferrous 1 tab PO BEDTIME 07/19/22 01/22/23 1 Day Ago History fumarate 28 mg-folic acid 800 mcg ~01/21/23 tablet ( Multivitamins) 1 promethazine 25 mg rectal 25 mg MO Q6H PRN nausea and 11/01/22 01/22/23 Unknown Rx suppository vomiting #24 ea promethazine 25 mg tablet 25 mg PO Q6H PRN nausea and 11/01/22 01/22/23 Unknown Rx vomiting #20 tabs doxylamine 10 mg-pyridoxine (vit 1 tab PO DIRECTED PRN Nausea 01/22/23 01/22/23 Unknown History B6) 10 mg tablet,delayed release And Vomiting (Diclegis) Allergies Allergy/AdvReac Type Severity Reaction Status Date / Time cefdinir Allergy ADR-Cramping Verified 01/11/23 16:23 of the Muscles sumatriptan [From Imitrex] Allergy swelling Verified 01/11/23 16:23 Current Medications Generic Name Dose Route Start Last Admin Trade Name Freq PRN Reason Stop Dose Admin Acetaminophen 1,000 mg 01/22/23 07:46 05/28/23 09:05 Acetaminophen 500 Mg Tablet PO 1,000 mg ONCE PRN Administration mild pain or temp >100.4 Dextrose/Lactated Ringer's 1,000 mls @ 125 mls/hr 01/22/23 09:41 01/22/23 16:13 Dextrose 5%-Lactated Ringers IV 999 mls/hr .Q8H PRN Administration per label comments [facility] Anesthesia Medical History Depression Dysfunctional uterine bleeding GERD without esophagitis Irritable bowel Migraine with aura, not intractable, without status migrainosus Polycystic ovarian syndrome Irregular cycles since menarche, longest up to 1 year without cycle, with increased acne problems. Diagnosed with PCOS in 2015. Surgical History S/P laparoscopic cholecystectomy (~2019) [facility]. Family History Grandmother Hypertension Maternal Hyperlipidemia Maternal Mother Hyperlipidemia Social History Smoking and tobacco status: never smoked Second hand smoke exposure: No Smoking risk assessment/counseling performed?: No Alcohol intake: unknown Desire information about alcohol rehabilitation?: No Counseling given: No Substance/Drug Use: never Desire information about substance/drug rehabilitation?: No Counseling given: No Adopted: No Caregiver/support person: No Lives independently: Yes Household members: spouse Housing: House Marital status: Number of children: 0 service: No Current occupational status: employed Pets and animals: Yes Pets & animals: dog(s) Do you think of yourself as: Straight/Heterosexual Current gender identity: Female Female Reproductive History : 1 Data Anesthesia 01/22/23 08:05 01/22/23 08:05 Short CBC 01/22/23 Range/Units 08:05 WBC 12.7 H (4.0-10.0) 10^3/uL Hgb 10.7 L (11.5-15.3) g/dL Hct 33.4 L (37.0-47.0) % MCV 81.5 (81-99) fl Plt Count 322 (130-400) 10^3/cmm Neut % (Auto) 67.8 % Neut # (Auto) 8.62 H (1.8-7.7) 10^3/uL BMP 01/22/23 08:05 Sodium 132 L Potassium 4.2 Chloride 103 Carbon Dioxide 18 L BUN 8 Creatinine 0.3 L Glucose 101 Calcium 8.7 Liver Function 01/22/23 Range/Units 08:05 Total Bilirubin 0.2 (0.15-1.2) mg/dL AST 17 (0-32) U/L ALT < 5 (0-33) U/L Alkaline Phosphatase 155 H (35-105) U/L Albumin 3.4 L (3.5-5.2) g/dL Cardiac Studies: No Data to Display
--- NOTE | 2023-01-22 20:05 | P.OP_ITS ---
Operative Report Date of procedure: January 22, 2023 Pre-op diagnosis: 1. Intrauterine at 37.3 weeks gestation 2. IVF 3. Preeclampsia without severe features 4. First trimester spotting 5. Anemia Post-op diagnosis: 1. Intrauterine status post primary low-transverse section at 37.3 weeks gestation 2. IVF 3. Preeclampsia without severe features 4. First trimester spotting 5. Anemia 6. Delivery of healthy male weighing 7 pounds 9 ounces with Apgars of 8 and 9 Post-op findings: 1. Healthy infant male weighing 7 pounds 9 ounces with Apgars of 8 and 9 2. Intact placenta with central umbilical cord insertion site 3. Cord wrapped around infant's body and sitting around infant's head and delivery Procedure done: Primary low-transverse section Specimens removed/disposition: Placenta discarded Surgeon: Azael Prasad MD Estimated blood loss (mL): 400 Complications: None Brief History: Tete Pearl is a 27 year old G1 now P1 status post primary low-transverse section @ 37.3 wks by LMP c/w IVF. Preg c/b IVF, h/o prediabetes on M etformin previously, obesity, 1st TM spotting, anemia - taking iron, now with preeclampsia without severe features. The patient presented to labor and delivery triage secondary to headache and elevated blood pressures at home.? She had been having blood pressures in the 130s over 90s and occasionally 140s over 90s.? She had been resting more but they persisted.? We got a 24-hour urine protein done and results came back yesterday at 871.? In triage the patient's blood pressures were in the 120s to 140s over 80s to 90s.? The patient was given Cytotec and initially did not have significant cont ractions. A second dose was given and the patient began to have more cramping associated with this. The patient had late decelerations and was given fluid boluses, and position changes, however the late decelerations were persistent. Since the were not abating, it was felt necessary to proceed with a primary low- transverse section due to intolerance of labor. The patient was 1.5 cm dilated prior to going back for surgery. Procedure: After informed consent was obtained, the patient was taken to the operating room and the patient was prepped and draped in a normal sterile fashion in the dorsal supine position.? A spinal was placed and adequate anesthesia was obtained.? At 1839 on 01/22/2023 a Pfannenstiel skin incision was made and carried through to the underlying layer of fascia using a scalpel.? The fascial incision was then extended laterally using curved Mayos.? The fascia was then grasped with Favian clamps and the underlying rectus muscles were dissected off taking care to avoid injury to the underlying tissues.? The peritoneum was entered bluntly with one digit.? It was then bluntly.? The bladder blade was placed and the vesicouterine peritoneum was well below the lower uterine segment of the uterus.? The uterine incision was made in the lower uterine segment in a transverse fashion with the scalpel at 1843 on 01/22/2023.? The amniotic membrane was entered bluntly and a large amount of clear fluid was noted.? Uterine pressure was placed and the infant's head delivered without complication at 1844 on 01/22/2023.? The umbilical cord was wrapped around the infant's body and sitting above the infant's head.? The mouth and nose were suctioned.? The rest of the infant delivered without difficulty.? The infant was crying immediately upon delivery.? The cord was clamped and cut and the infant was handed to the awaiting pediatric nurses.? The placenta was then manually expressed.? The uterus was exteriorized from the abdomen.? A wet lap was used to clear the uterus of clots and debris.? The bladder blade was reinserted and the uterine incision was closed using 0 chromic in a running locking fashion.? The uterus was noted to be firm.? A second layer of the same suture was used in the same manner.? Excellent hemostasis was obtained. Next the posterior cul-de-sac was inspected and was cleared of any blood. The gutters were cleared of any further clots and debris and the uterine incision was again inspected and hemostasis was noted.? The subfascial tissue was inspected for hemostasis and the peritoneum was re-approximated using 2-0 plain in a running fashion.? The fascia was then re-approximated using 0 Vicryl in a running fashion.? The subcutaneous tissue was inspected for hemostasis.? Raulito's fascia was then re-approximated using 3-0 plain in a running fashion.? Good hemostasis was noted.? The subcutaneous tissue was then re-approximated using a subcuticular stitch.? The patient tolerated the procedure well and was recovered in stable condition.? Estimated blood loss was 400 mL. Urine in the Ramos catheter was clear. The patient was taken to recovery in good condition.
[2023-01-22] MEDS: diphenhydrAMINE 50 mg/mL SDV 1mL 25 MG IVP (21:37)
[2023-01-23] VITALS (12 sets, daily range): BP systolic 110–119; BP diastolic 52–72; PULSE 113–126; RESP 16–18; TEMP 36.1–36.7; O2SAT 94–96
[2023-01-23] MEDS: ketorolac 30 mg/mL INJ IVP ×2 (00:47→07:25)
[2023-01-23] MEDS: dextrose 5%-lactated ringers 1,000 ML 125 ML IV (03:15)
[2023-01-23 07:11] LABS: Hematocrit 31.7 % (37.0-47.0); Hemoglobin 9.9 g/dL (11.5-15.3); Mean Corpuscular HGB Conc 31.2 g/dL (30.0-36.0); Mean Corpuscular Hemoglobin 25.7 pg (28.0-34.0); Mean Corpuscular Volume 82.3 fl (81-99); Mean Platelet Volume 9.3 fL (7.4-10.4); Platelet Count 336 10^3/cmm (130-400); Red Blood Count 3.85 10^6/uL (4.1-5.3); Red Cell Distribution Width 15.2 % (12.1-15.1)
[2023-01-23] MEDS: prenatal vitamin Capsule 1 CAP PO (07:24)
[2023-01-23] MEDS: ferrous sulfate EC 325 mg Tablet PO ×2 (07:24→18:36)
[2023-01-23] MEDS: oxyCODONE-APAP 5-325 mg Tablet PO ×3 (07:24→18:36)
--- NOTE | 2023-01-23 09:48 | ANE.PACU2 ---
Inpatient post-anesthesia follow up: Airway intact: Yes Vital signs: Temperature 98.1 F Pulse Rate 113 Respiratory Rate 17 Blood Pressure 119/72 Pulse Oximetry 94 Oxygen Delivery Me thod Room Air Oxygen Flow Rate Fraction of Inspir ed Oxygen Hydration adequate: Yes Nausea and vomiting: No Pain level: 1 Mental status: Baseline
[2023-01-23] MEDS: docusate sodium 100 mg Capsule PO ×2 (11:31→18:36)
--- NOTE | 2023-01-23 16:29 | PM.PN ---
Subjective Subjective: The patient is doing well overall at this time. Her urine output was slow initially, however has improved and she is now voiding on her own. She has passed gas and is tolerating food and liquids by mouth. The patient's pain is currently well controlled. She is ambulating. Her blood pressures have been in a good range. Vitals/I&O/Wt Last Vital Signs Temp 97.0 F L 01/23/23 09:52 Pulse 113 H 01/23/23 09:52 Resp 16 01/23/23 11:32 BP 119/72 01/23/23 09:52 Pulse Ox 96 01/23/23 09:52 O2 Del Method Room Air 01/23/23 09:52 01/23/23 01/23/23 01/23/23 06:59 14:59 22:59 Intake Total 1300 / 1800 Output Total 700 / 1000 550 / 550 Balance 600 / 800 -550 / -550 Weight last 48 hrs Weight 255 lb Physical Exam Narrative: General: Alert and oriented x3 Cardiac: Regular rate and rhythm without murmurs Lungs: Clear to auscultation bilaterally without wheezes, crackles or rhonchi Abdomen: Soft, mild to moderate tenderness over uterus. The uterus is firm and 2 cm below the umbilicus. Incision is clean and dry without signs of infection or dehiscence. There is edema noted in the lower abdominal wall. Extremities: +1 pitting edema in the bilateral lower extremities. Deep tendon reflexes are brisk. Urinary Catheter Management: Ramos: Cath Placed During This Visit: yes, but has since been removed by the nurse Reason for Continuing Indwelling Catheter: Required Immobilization for Trauma or Surgery or Anesthesia Urinary Catheter Date of Insertion: 01/22/23 Urinary Catheter Time of Insertion: 18:33 Date Urinary Catheter Removed: 01/23/23 Time Urinary Catheter Discontinued: 11:34 Data 01/23/23 06:35 01/22/23 08:05 A&P Assessment and plan (1) Supervision of normal intrauterine in primigravida: (2) Preeclampsia: (3) Status post section: The patient is currently doing well after her section. Her pain is well controlled. She is ambulating, voiding, passing gas and tolerating food by mouth. Her blood pressures have been in a good range. She is not showing significant risk for eclampsia so we have held off on magnesium. We discussed risk for complication of wound infection. The patient continues need inpatient care as she recovers. Continue with routine care otherwise. Attestations Medical Necessity Statement*: The patient will be here for greater than 2 midnights due to routine intrapartum and management of labor and delivery with preeclampsia. Coding Level of Care Code Acute Code for Chg Fwd Diagnoses Supervision of normal intrauterine in primigravida Z34.00 Preeclampsia O14.90 Status post section Z98.891
[2023-01-23] MEDS: ibuprofen 800 mg tablet PO (22:26)
[2023-01-23] MEDS: lanolin oint 7 gm 1 APPLIC TOPICAL (22:27)
[2023-01-23] MEDS: simethicone 80 mg Chew PO (22:27)
[2023-01-24] VITALS (7 sets, daily range): BP systolic 117–134; BP diastolic 78–80; PULSE 110–116; RESP 14–18; TEMP 36; O2SAT 94–97
[2023-01-24] MEDS: oxyCODONE-APAP 5-325 mg Tablet PO (04:53)
[2023-01-24] MEDS: simethicone 80 mg Chew PO (05:00)
--- NOTE | 2023-01-24 08:11 | PM.DCS ---
Discharge Providers Date of Admission: 01/22/23 10:32 Date of Discharge: January 24, 2023 Attending Provider at Admission: Azael Prasad MD Attending Provider at Discharge: Azael Prasad MD Primary Care Provider: Graciela Pearl MD Diagnoses at Discharge Discharge Diagnosis (1) Supervision of normal intrauterine in primigravida: Status: Acute (2) Preeclampsia: Status: Acute (3) Status post section: Status: Acute Other Information Additional DC diagnoses/information: 1.? Intrauterine status post primary low-transverse section at 37.3 weeks gestation 2.? IVF 3.? Preeclampsia without severe features 4.? First trimester spotting 5.? Anemia 6.? Delivery of healthy infant male weighing 7 pounds 9 ounces with Apgars of 8 and 9 Reason for Visit Reason for Visit: increased blood pressure and headache Brief History: Tete Peral is a 27 year old G1 now P1 status post primary low-transverse section @ 37.3 wks by LMP c/w IVF. Preg c/b IVF, h/o prediabetes on Metformin previously, obesity, 1st TM spotting, anemia - taking iron, now with preeclampsia without severe features. The patient presented to labor and delivery triage secondary to headache and elevated blood pressures at home.? She had been having blood pressures in the 130s over 90s and occasionally 140s over 90s.? She had been resting more but they persisted.? We got a 24-hour urine protein done and results came back yesterday at 871.? In triage the patient's blood pressures were in the 120s to 140s over 80s to 90s.? Hospital Course Hospital Course The patient was given Cytotec and initially did not have significant contractions.? A second dose was given and the patient began to have more cramping associated with this.? The patient had late decelerations and was given fluid boluses, and position changes, however the late decelerations were persistent.? Since the were not abating, it was felt necessary to proceed with a primary low-transverse section due to intolerance of labor.? The patient was 1.5 cm dilated prior to going back for surgery. The patient had an uncomplicated primary low-transverse section. During the surgery it was noted that the umbilical cord was looped over the infant's body and around its head and that it was likely at high risk for a prolapsed cord. This was very possibly the reason for the recurrent late decelerations. the patient has done well and her pain is well controlled. She is ambulating, voiding, passing gas and tolerating food by mouth. Her blood pressures have decreased well and she has not needed any antihypertensive medications. Her incision is showing no signs of infection at this time. She does have some swelling over her lower abdominal wall that was present prior to surgery and has increased mildly since surgery. She is to keep a close eye on this and if there are any signs of infection, I would recommend that clindamycin is started for treatment. I will plan to see her in clinic next week and she is to follow-up with another provider in our clinic later on this week as needed. Discharge instructions were discussed and the patient and her are in agreement with current plan of care. All questions were answered. Physical Exam Narrative: General: Alert and oriented x3 Cardiac: Regular rate and rhythm without murmurs Lungs: Clear to auscultation bilaterally without wheezes, crackles or rhonchi Abdomen: Soft, mild to moderate tenderness over uterus. The uterus is firm and 2 cm below the umbilicus. Incision is clean and dry without signs of infection or dehiscence. There is edema noted in the lower abdominal wall. Extremities: +1 pitting edema in the bilateral lower extremities. Deep tendon reflexes are brisk. Urinary Catheter Management: Ramos: Cath Placed During This Visit: yes, but has since been removed by the nurse Reason for Continuing Indwelling Catheter: Required Immobilization for Trauma or Surgery or Anesthesia Urinary Catheter Date of Insertion: 01/22/23 Urinary Catheter Time of Insertion: 18:33 Date Urinary Catheter Removed: 01/23/23 Time Urinary Catheter Discontinued: 11:34 Discharge Data Studies Completed and Pending Laboratory Results WBC 16.0 10^3/uL (4.0-10.0) H 01/23/23 06:35 RBC 3.85 10^6/uL (4.1-5.3) L 01/23/23 06:35 Hgb 9.9 g/dL (11.5-15.3) L 01/23/23 06:35 Hct 31.7 % (37.0-47.0) L 01/23/23 06:35 MCV 82.3 fl (81-99) 01/23/23 06:35 MCH 25.7 pg (28.0-34.0) L 01/23/23 06:35 MCHC 31.2 g/dL (30.0-36.0) 01/23/23 06:35 RDW 15.2 % (12.1-15.1) H 01/23/23 06:35 Plt Count 336 10^3/cmm (130-400) 01/23/23 06:35 MPV 9.3 fL (7.4-10.4) 01/23/23 06:35 Neut % (Auto) 67.8 % 01/22/23 08:05 Lymph % (Auto) 21.1 % 01/22/23 08:05 [place] % (Auto) 8.0 % 01/22/23 08:05 Eos % (Auto) 1.2 % 01/22/23 08:05 Baso % (Auto) 0.5 % 01/22/23 08:05 Neut # (Auto) 8.62 10^3/uL (1.8-7.7) H 01/22/23 08:05 Lymph # (Auto) 2.7 10^3/uL (0.8-4.8) 01/22/23 08:05 [place] # (Auto) 1.0 10^3/uL (0.2-0.9) H 01/22/23 08:05 Eos # (Auto) 0.2 10^3/uL (0.0-0.8) 01/22/23 08:05 Baso # (Auto) 0.1 10^3/uL (0.0-0.1) 01/22/23 08:05 Nucleated RBC % (auto) 0 % 01/22/23 08:05 Nucleated RBCs # 0.0 /100WBC 01/22/23 08:05 Sodium 132 mmol/L (136-145) L 01/22/23 08:05 Potassium 4.2 mmol/L (3.5-5.1) 01/22/23 08:05 Chloride 103 mmol/L (98-107) 01/22/23 08:05 Carbon Dioxide 18 mmol/L (22-29) L 01/22/23 08:05 Anion Gap 15.2 (5-19) 01/22/23 08:05 BUN 8 mg/dL (6-20) 01/22/23 08:05 Creatinine 0.3 mg/dL (0.5-0.9) L 01/22/23 08:05 GFR Calculation 266.9 mL/min (90-130) H 01/22/23 08:05 Glucose 101 mg/dL (65-115) 01/22/23 08:05 Calculated Osmolality 272 mOsm/kg (285-295) L 01/22/23 08:05 Uric Acid 5.1 mg/dL (2.4-5.7) 01/22/23 08:05 Calcium 8.7 mg/dL (8.5-10.5) 01/22/23 08:05 Total Bilirubin 0.2 mg/dL (0.15-1.2) 01/22/23 08:05 AST 17 U/L (0-32) 01/22/23 08:05 ALT < 5 U/L (0-33) 01/22/23 08:05 Alkaline Phosphatase 155 U/L (35-105) H 01/22/23 08:05 Total Protein 6.7 g/dL (6.6-8.7) 01/22/23 08:05 Albumin 3.4 g/dL (3.5-5.2) L 01/22/23 08:05 Globulin 3.3 g/dL (1.3-4.6) 01/22/23 08:05 Vitals Last Vital Signs Temp 96.8 F L 01/24/23 04:55 Pulse 110 H 01/24/23 04:55 Resp 18 01/24/23 04:53 BP 117/79 01/24/23 04:55 Pulse Ox 95 01/23/23 22:26 O2 Del Method Room Air 01/24/23 04:00 Discharge Plan Discharge Patient Disposition: Home Condition: Good Prescriptions: New ferrous sulfate 325 mg (65 mg iron) Tablet,Delayed Release (Dr/Ec) 325 mg PO BIDWM Qty: 30 0RF ibuprofen 800 mg Tablet 800 mg PO TID Qty: 60 0RF oxycodone-acetaminophen 5-325 mg Tablet 1 - 2 tab PO Q6H PRN (Reason: Moderate To Severe Pain) Qty: 30 0RF Continued PNV cmb#95-ferrous fumarate-FA [ Multivitamins] 28 mg iron- 800 mcg Tablet 1 tab PO BEDTIME Discontinued promethazine 25 mg suppository 25 mg CA Q6H PRN (Reason: nausea and vomiting) Qty: 24 0RF promethazine 25 mg tablet 25 mg PO Q6H PRN (Reason: nausea and vomiting) Qty: 20 0RF doxylamine-pyridoxine (vit B6) [Diclegis] 10-10 mg Tablet,Delayed Release (Dr/Ec) 1 tab PO DIRECTED PRN (Reason: Nausea And Vomiting) Discharge Orders: Discharge Order (Routine); Ordered 01/24/23 Ordered By: Azael Prasad Referrals: Graciela Pearl MD [Primary Care Provider] - 01/25/23 11:00 am () Azael Prasad MD [Physician] - 02/02/23 12:20 pm Discharge Diet: Regular Discharge Activity: Increase activity as tolerated Patient Instructions: Depression (DC), Bleeding (DC), Preeclampsia and Eclampsia After Delivery (GEN), (DC), Hemorrhage (DC), OB Discharge Report, OB Food/Drug Interaction Guide, Opioid Safety, OB [facility] - [facility] Activity Restrictions/Additional Instructions: Please keep overall activity levels low for the next 1 to 2 weeks to allow your body to heal from preeclampsia. Do not lift anything heavier than your infant in the car seat for the first 3 weeks, then gradually increase. If you have any concern for infection in your incision site, please seek immediate medical attention. In general I would recommend clindamycin for treatment if needed. Nothing per vagina for 6 weeks. Take your vitamin for a minimum of 6 weeks or until you are done breast-feeding. I would recommend showers instead of baths for the first 6 weeks. Discharge Attestations Time Spent in Discharge Care*: greater than 30 min Quality Metrics Clinical Quality Measures [ No reported AMI, CVA or VTE this stay] Coding Level of Care Code Acute Code for Chg Fwd Diagnoses Supervision of normal intrauterine in primigravida Z34.00 Preeclampsia O14.90 Status post section Z98.891
[2023-01-24] MEDS: ibuprofen 800 mg tablet PO (08:53)
[2023-01-24] MEDS: ferrous sulfate EC 325 mg Tablet PO (08:53)
[2023-01-24] MEDS: prenatal vitamin Capsule 1 CAP PO (08:53)
[2023-01-24] MEDS: docusate sodium 100 mg Capsule PO (08:53)
== END 2023-01-24 13:31 | disposition home or self-care (01) | DRG 788 ==
LOC: OPOB 10:33 → OBGYN 10:33
PROVIDERS: Admitting Provider Family Medicine; PCP Family Medicine; Visit Provider Family Medicine
PROC: 10D00Z1 Extraction of Products of Conception, Low, Open Approach (ICD-10-PCS; CPT 59514; principal; 2023-01-22 18:10)
DX: O14.04 Mild to moderate pre-eclampsia, complicating childbirth (principal); Z3A.37 37 weeks gestation of pregnancy; Z37.0 Single live birth; O99.02 Anemia complicating childbirth; D64.9 Anemia, unspecified; O99.284 Endocrine, nutritional and metabolic diseases complicating childbirth; E28.2 Polycystic ovarian syndrome; O99.344 Other mental disorders complicating childbirth; F32.A Depression, unspecified; F41.9 Anxiety disorder, unspecified; O77.9 Labor and delivery complicated by fetal stress, unspecified
CPT/HCPCS: 36415; 51702; 59025; 59409; 80053; 84550; 85025; 85027; 96372; 96374; 96376; 99211; J1200; J1885; J2274; J2405; J2590; J2765; J3010; J3105; J3490; J7030; J7120; J7121

== ENCOUNTER → 2023-12-18 16:39 | Outpatient (BNVA) | payer BC, SELFPAY | PROVIDERS: PCP Family Medicine; Visit Provider Family Medicine | DX: E28.2 Polycystic ovarian syndrome (principal); R73.03 Prediabetes | CPT/HCPCS: 80053; 84443; 85025 ==

== ENCOUNTER 2024-08-26 09:32 | Emergency (ER) | payer BC, SELFPAY ==
[2024-08-26 09:41] VITALS: BP 121/76; PULSE 102; RESP 18; TEMP 36.4; O2SAT 98; BMI 42.9
--- NOTE | 2024-08-26 10:02 | ED_ITS ---
HPI - Female Genitourinary 2 General: Chief complaint: Urogenital-Female Stated complaint: pelvic pain Time Seen by Provider: 08/26/24 09:40 Source: patient Mode of arrival: ambulatory Limitations: no limitations History of Present Illness: Patient is a 28-year-old female who presents to the ED today with complaint of acute onset pelvic pain a few hours ago. Patient states she immediately began feeling intense pressure to her pelvis and rectal area. She states she immediately felt nauseous. She states upon arrival to the emergency department the pain has eased off . She has a history of PCOS. She states she has had a similar episode previously with a ruptured cyst. States last menstrual period was sometime back in June. She does have irregular cycles secondary to her PCOS. She is sexually active and monogamous with her . She has not noticed any changes in her bowel movements. Denies vaginal bleeding, odor, discharge. She is not having any urinary complaints. MD elicited complaint: pelvic pain Onset (ago): hour(s) Severity: severe Quality of pain: sharp Consistency: other (improving) Vaginal discharge: none Vaginal bleeding: none Exacerbating factors: none Relieving factors: none Associated symptoms: Reports nausea; Deny abdominal pain, headache(s) or vaginal discharge Treatment prior to arrival: none Sexual activity: Yes Patient : No Related Data Home Medications Medication Instructions Recorded Confirmed No Known Home Medications 08/26/24 08/26/24 Allergies Allergy/AdvReac Type Severity Reaction Status Date / Time cefdinir Allergy ADR-Cramping Verified 08/26/24 09:45 of the Muscles sumatriptan [From Imitrex] Allergy swelling Verified 08/26/24 09:45 Review of Systems 2 Const: Denies: fever(s), chills, body aches, fatigue or malaise Card: Denies: chest pain Resp: Denies: dyspnea GI: Reports: nausea; Denies: abdominal pain, vomiting, diarrhea or change in bowel habits : Reports: pelvic pain; Denies: flank pain, difficulty voiding, dysuria, urinary frequency, urinary urgency, urinary hesitancy, genital pruritis, vaginal bleeding or vaginal discharge Musc: Denies: neck pain, back pain, extremity pain, extremity swelling, joint pain or joint swelling Skin/Breast: Denies: rash Neuro: Denies: headache(s), numbness in extremities, weakness in extremities, sensory changes or dizziness PFS ED 2 PFSH: Medical History GERD without esophagitis Irritable bowel Dysfunctional uterine bleeding Depression Polycystic ovarian syndrome Irregular cycles since menarche, longest up to 1 year without cycle, with increased acne problems. Diagnosed with PCOS in 2015. Migraine with aura, not intractable, without status migrainosus Surgical History Status post section S/P laparoscopic cholecystectomy (~2019) [facility]. Family History Grandmother Hypertension Maternal Hyperlipidemia Maternal Mother Hyperlipidemia Social History Smoking and tobacco/nicotine status: never used tobacco/nicotine Second hand smoke exposure: No Alcohol intake: unknown Substance/Drug Use: never Adopted: No Caregiver/support person: No Lives independently: Yes Household members: spouse Housing: House Marital status: Number of children: 0 service: No Current occupational status: employed Pets and animals: Yes Pets & animals: dog(s) Do you think of yourself as: Straight/Heterosexual Current gender identity: Female Physical Exam 2 Const: COMMON NORMALS: patient oriented x3, no limitations, alert and well nourished GENERAL APPEARANCE: cooperative and in distress (appears uncomfortable secondary to pain) NUTRITIONAL APPEARANCE: obese (BMI 42.9) Resp: COMMON NORMALS: normal respiratory effort and clear to auscultation bilaterally AUSCULTATION: clear to auscultation bilaterally Cardio: COMMON NORMALS: regular rate and regular rhythm RATE: regular rate RHYTHM: regular rhythm GI: COMMON NORMALS: Normal to inspection, nondistended, normoactive bowel sounds present, Soft to palpation and no masses INSPECTION: Yes normal to inspection AUSCULTATION: Yes normoactive bowel sounds PALPATION: Yes Soft to palpation, Yes Tenderness to palpation present (GI) (throughout lower pelvis), No Guarding due to palpation present (GI) and No Rigid due to palpation : COMMON NORMALS: Yes no CVA tenderness BLADDER/KIDNEY EXAM: Yes no CVA tenderness OTHER: deferred pelvic exam Back/Pelvis: COMMON NORMALS: no CVA tenderness Neuro: COMMON NORMALS: patient oriented x3 SENSORIUM/ORIENTATION: Yes alert Course 2 Vital Signs: Vital signs: Vital Signs Temperature 97.6 F 08/26/24 09:41 Pulse Rate 96 08/26/24 10:11 Respiratory Rate 18 08/26/24 10:11 Blood Pressure 108/76 08/26/24 10:11 Pulse Oximetry 96 08/26/24 10:11 Oxygen Delivery Me thod Room Air 08/26/24 10:11 MDM - Female Medical Decision Making At time of repeat examination, patient is not having any pain whatsoever. Her vital signs of remained stable throughout her stay. Blood work overall is nonactionable. UA does not appear suspicious for infection. Transvaginal ultrasound showing some minimal physiologic free fluid. Slightly enlarged right ovary with a crenulated right ovarian corpus luteum. Flow is identified to each ovary. Based on patient's history I suspect that pain was secondary to an ovarian cyst. She feels comfortable going home at this time. Return to ED precautions given. Medical Records I reviewed the patient's medical records. Lab Data I reviewed the patient's lab results. 08/26/24 10:00 08/26/24 10:00 Radiology Impressions Transvaginal US 08/26/24 10:02 IMPRESSION: 1. Normal sized endometrium. 2. Minimal, physiologic free fluid in the cul-de-sac. 3. RIGHT ovary is slightly enlarged. Crenulated RIGHT ovarian corpus luteum. 4. Vascularity to each ovary is somewhat limited and suboptimal but this is probably due to position of the ovaries. Flow is identified to each ovary. Laboratory Results WBC 11.97 10^3/uL (3.29-11.43) H 08/26/24 10:00 RBC 4.68 10^6/uL (3.85-5.65) 08/26/24 10:00 Hgb 12.70 g/dL (11.27-16.99) 08/26/24 10:00 Hct 39.3 % (36-47) 08/26/24 10:00 MCV 84.0 fl (85-98) L 08/26/24 10:00 MCH 27.1 pg (27-33) 08/26/24 10:00 MCHC 32.3 g/dL (30-55) 08/26/24 10:00 RDW 13.1 % (12.1-15.1) 08/26/24 10:00 Plt Count 392 10^3/cmm (157-399) 08/26/24 10:00 MPV 8.5 fL (7.4-10.4) 08/26/24 10:00 Neut % (Auto) 55.8 % 08/26/24 10:00 Lymph % (Auto) 31.7 % 08/26/24 10:00 [place] % (Auto) 7.6 % 08/26/24 10:00 Eos % (Auto) 3.4 % 08/26/24 10:00 Baso % (Auto) 0.8 % 08/26/24 10:00 Neut # (Auto) 6.68 10^3/uL (1.8-7.7) 08/26/24 10:00 Lymph # (Auto) 3.8 10^3/uL (0.8-4.8) 08/26/24 10:00 [place] # (Auto) 0.9 10^3/uL (0.2-0.9) 08/26/24 10:00 Eos # (Auto) 0.4 10^3/uL (0.0-0.8) 08/26/24 10:00 Baso # (Auto) 0.1 10^3/uL (0.0-0.1) 08/26/24 10:00 Nucleated RBC % (auto) 0 % 08/26/24 10:00 Nucleated RBCs # 0.0 /100WBC 08/26/24 10:00 Sodium 135 mmol/L (136-145) L 08/26/24 10:00 Potassium 4.0 mmol/L (3.5-5.1) 08/26/24 10:00 Chloride 99 mmol/L (98-107) 08/26/24 10:00 Carbon Dioxide 24 mmol/L (22-29) 08/26/24 10:00 Anion Gap 16.0 (5-19) 08/26/24 10:00 BUN 7 mg/dL (6-20) 08/26/24 10:00 Creatinine 0.5 mg/dL (0.5-0.9) 08/26/24 10:00 GFR Calculation 146.9 mL/min (90-130) H 08/26/24 10:00 Glucose 108 mg/dL (65-115) 08/26/24 10:00 Calculated Osmolality 279 mOsm/kg (285-295) L 08/26/24 10:00 Calcium 9.5 mg/dL (8.5-10.5) 08/26/24 10:00 Total Bilirubin 0.3 mg/dL (0.15-1.2) 08/26/24 10:00 AST 27 U/L (0-32) 08/26/24 10:00 ALT 18 U/L (0-33) 08/26/24 10:00 Alkaline Phosphatase 100 U/L (35-105) 08/26/24 10:00 Total Protein 7.5 g/dL (6.6-8.7) 08/26/24 10:00 Albumin 4.3 g/dL (3.5-5.2) 08/26/24 10:00 Globulin 3.2 g/dL (1.3-4.6) 08/26/24 10:00 HCG, Qual Cancelled 08/26/24 10:00 HCG, Qual Negative (Negative) 08/26/24 10:00 Urine Color Yellow (Yellow) 08/26/24 10:00 Urine Appearance Cloudy (CLEAR) A 08/26/24 10:00 Urine pH 7.0 (5-7) 08/26/24 10:00 Ur Specific [place] 1.023 (1.005-1.030) 08/26/24 10:00 Urine Protein Negative (Negative) 08/26/24 10:00 Urine Glucose (UA) Negative (Normal) 08/26/24 10:00 Urine Ketones Negative (Negative) 08/26/24 10:00 Urine Blood Trace (Negative) A 08/26/24 10:00 Urine Nitrate Negative (Negative) 08/26/24 10:00 Urine Bilirubin Negative (Negative) 08/26/24 10:00 Urine Urobilinogen 1.0 mg/dL (Negative) 08/26/24 10:00 Ur Leukocyte Esterase Negative (Negative) 08/26/24 10:00 Urine RBC 6-10 /hpf (0-2) 08/26/24 10:00 Urine WBC 0-5 /hpf (0-5) 08/26/24 10:00 Ur Squamous Epith Cells 0-5 /hpf (0-5) 08/26/24 10:00 Amorphous Sediment Not Reportable 08/26/24 10:00 Urine Bacteria None seen /hpf (NONE) 08/26/24 10:00 Hyaline Casts 0-4 /lpf H 08/26/24 10:00 All radiology interpretation(s) finalized by discharge Discharge Plan Discharge Patient Disposition: Home Clinical Impression: Ovarian cyst Qualifiers: Laterality: right Qualified Code(s): N83.201 - Unspecified ovarian cyst, right side Condition: Stable Prescriptions: No Action No Known Home Medications Discharge Orders: Discharge ED (Routine); Ordered 08/26/24 Ordered By: Tiesha Parson Referrals: Graciela Pearl MD [Primary Care Provider] - Patient Instructions: Ovarian Cyst (ED) Activity Restrictions/Additional Instructions: As we discussed, at time of discharge you were no longer having any pelvic pain. Emergency department workup was overall fairly benign. I suspect symptoms were attributed to an ovarian cyst. I would like you to follow-up with primary care later this week for reevaluation. You need to return to the emergency department for return of pain, severe pain, constant pain, repetitive episodes of vomiting or diarrhea, fevers, generally feeling worse or unwell, or any other concerns you may have. I hope you begin to feel better soon. Coding Level of Care Code ED Parking Enforcement Manager for Brenda Casillas
--- NOTE | 2024-08-26 10:02 | US_ITS ---
WS: [id number] US transvaginal [id number] HISTORY: pelvic pain; hx of PCOS COMPARISON: None available. Uterus: 8.7 cm x 6.4 cm x 4.9 cm. Normal size anteverted uterus. No fibroid or mass. Endometrium: 1.3 cm. Mildly thickened heterogeneous endometrium but still within normal limits. Small nabothian cysts along the cervical canal. Right ovary: 4.8 cm x 4.7 cm x 2.6 cm. RIGHT ovary is measuring slightly larger in size. Crenulated c orpus luteum in the RIGHT ovary. Color Doppler is present but not robust. This is probably due to pos ition of the ovary deep within the pelvis. There is no adjacent fluid. Left ovary: 2.7 cm x 2.1 cm x 2.6 cm. Normal size ovary. Blood flow is difficult to obtain but this i s probably due to position of the ovary. Tiny amount of free fluid in the pelvis. US/US transvaginal [id number] IMPRESSION: 1. Normal sized endometrium. 2. Minimal, physiologic free fluid in the cul-de-sac. 3. RIGHT ovary is slightly enlarged. Crenulated RIGHT ovarian corpus luteum. 4. Vascularity to each ovary is somewhat limited and suboptimal but this is pr obably due to position of the ovaries. Flow is identified to each ovary.
[2024-08-26] MEDS: ondansetron 2 mg/ML SDV 2 mL 4 MG IVP (10:06)
[2024-08-26] MEDS: morphine 4 mg/mL SDV 1 mL IVP (10:06)
[2024-08-26 10:10] LABS: Basophils # 0.1 10^3/uL (0.0-0.1); Basophils % 0.8 %; Eosinophils # 0.4 10^3/uL (0.0-0.8); Eosinophils % 3.4 %; Hematocrit 39.3 % (36-47); Lymphocytes # 3.8 10^3/uL (0.8-4.8); Lymphocytes % 31.7 %; Mean Corpuscular HGB Conc 32.3 g/dL (30-55); Mean Corpuscular Hemoglobin 27.1 pg (27-33); Mean Platelet Volume 8.5 fL (7.4-10.4); Monocytes # 0.9 10^3/uL (0.2-0.9); Monocytes % 7.6 %; Neutrophils # 6.68 10^3/uL (1.8-7.7); Neutrophils % 55.8 %; Nucleated Red Blood Cells % 0 %; Platelet Count 392 10^3/cmm (157-399); Red Blood Count 4.68 10^6/uL (3.85-5.65); Red Cell Distribution Width 13.1 % (12.1-15.1); White Blood Count 11.97 10^3/uL (3.29-11.43)
[2024-08-26 10:11] VITALS: BP 108/76; PULSE 96; RESP 18; O2SAT 96
[2024-08-26 10:13] LABS: Bilirubin Urine Negative (Negative); Blood Urine Trace (Negative); Glucose Urine UA Negative (Normal); Ketones Urine Negative (Negative); Leukocyte Esterase Urine Negative (Negative); Nitrate Urine Negative (Negative); Protein Urine Negative (Negative); Specific Gravity, Urine 1.023 (1.005-1.030); Urine Appearance Cloudy (CLEAR); Urine Color Yellow (Yellow)
[2024-08-26 10:16] LABS: Add Urine Microscopic? YES; Bacteria Urine None Seen /hpf; Hyaline Casts Urine 0-4 /lpf; Squamous Epithelial Cell Urine 0-5 /hpf (0-5); WBC Urine 0-5 /hpf (0-5)
[2024-08-26 10:29] LABS: Alanine Aminotransferase 18 U/L (0-33); Albumin Level 4.3 g/dL (3.5-5.2); Alkaline Phosphatase 100 U/L (35-105); Aspartate Amino Transferase 27 U/L (0-32); Blood Urea Nitrogen 7 mg/dL (6-20); Calcium 9.5 mg/dL (8.5-10.5); Carbon Dioxide 24 mmol/L (22-29); Chloride 99 mmol/L (98-107); Creatinine Clr Calc Pharmacy 206.7406; Globulin 3.2 g/dL (1.3-4.6); Glomerular Filtration Rate 146.9 mL/min (90-130); Glucose 108 mg/dL (65-115); Osmolality Calculated 279 mOsm/kg (285-295); Sodium 135 mmol/L (136-145); Total Bilirubin 0.3 mg/dL (0.15-1.2); Total Protein 7.5 g/dL (6.6-8.7)
[2024-08-26 10:36] LABS: HCG Qualitative Urine. Negative (Negative)
== END 2024-08-26 12:09 | disposition home or self-care (01) ==
PROVIDERS: Emergency Provider Physician Assistant; PCP Family Medicine
DX: N83.201 Unspecified ovarian cyst, right side (principal)
CPT/HCPCS: 36415; 76830; 80053; 81001; 81025; 85025; 96374; 96375; 99284; J2270; J2405